=== PATIENT | female | born 1930 | race Caucasian/White ===

== ENCOUNTER 2016-04-14 09:00 | Outpatient (RCR) | payer MEDICARE | END 2016-05-11 | disposition home or self-care (01) | LOC: PTY 09:00 | DX: R26.9 Unspecified abnormalities of gait and mobility (principal); I69.854 Hemiplegia and hemiparesis following other cerebrovascular disease affecting left non-dominant side | CPT/HCPCS: 97110; 97112; 97140; 97162; G8978; G8979 ==

== ENCOUNTER 2016-04-14 18:22 | Emergency (ER) | payer MEDICARE ==
[~2016-04-14] VITALS: Ht 172.7 cm; Wt 59.0 kg
[2016-04-14 19:00] VITALS: BP 167/68
[2016-04-14] MEDS ORDERED: Oxymetazoline 0.05% Na Spray 30ml NASAL ONE (19:15)
[2016-04-14 20:44] VITALS: BP 167/68
--- NOTE | 2016-04-15 14:35 | Emergency Room Report ---
History of Present Illness General Chief Complaint: Nosebleed Source: Patient Present Illness HPI 85-year-old female presents ED for evaluation of nosebleed. Patient states she has had a nosebleed on and off for the last few days. Persistent longer than usual today so she came to the ER for evaluation. States the nosebleed stopped prior to arrival. Denies any injuries. Denies taking any blood thinners. Patient states she feels fine. Denies any difficulty breathing or swallowing. Denies any headaches. No aggravating relieving factors. 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 no active bleeding Neck: normal inspection Respiratory: chest non-tender, lungs clear, normal breath sounds, speaking full sentences Cardiovascular #1: regular rate, rhythm, no edema Gastrointestinal: normal inspection Rectal: deferred Genitourinary: no CVA tenderness Musculoskeletal: normal inspection Neurologic: alert, oriented x3, responsive, motor strength/tone normal, sensory intact, speech normal Psychiatric: normal inspection Skin: normal inspection Lymphatic: normal inspection Medical Decision Making Diagnostic Impression: Primary Impression: Epistaxis ER Course 85-year-old female presents to ED with epistaxis from right nostril. No trauma Differential-anterior epistaxis, posterior epistaxis, coagulopathy Patient placed on stretcher. After initial history, physical exam reveals elderly female in no acute distress. On exam there is no evidence of active bleeding. Dry blood in the right nares. Airways are patent We sprayed Afrin in the right nostril and observe patient for one hour No repeat episodes of bleeding. I discussed case with PMD Dr. Duval and he agrees patient be safely discharged to home at this time with ENT followup. Family at bedside agree Diagnoses-epistaxis Stable and discharged to home. Followup with ENT. Return to ED if symptoms recur or worsen Last Vital Signs Date Time Temp Pulse Resp B/P Pulse Ox O2 Delivery O2 Flow Rate FiO2 04/14/16 20:44 98.1 53 16 167/68 100 Room Air Status: improved Disposition: HOME, SELF-CARE Condition: Stable Referrals: RISHI VERDUGO Vishal MD NOT CHOSEN IPA/,REFERRING (PCP) HUMBERTO GONZALES M.D. Patient Instructions: Nosebleed, [id number] SHA RICHARDSON M.D. Apr 15, 2016 14:35
== END 2016-04-14 20:45 | disposition home or self-care (01) ==
LOC: EMR 19:03
DX: R04.0 Epistaxis (principal); Z88.0 Allergy status to penicillin; I10 Essential (primary) hypertension; G81.94 Hemiplegia, unspecified affecting left nondominant side
CPT/HCPCS: 99283

== ENCOUNTER 2016-05-12 13:45 | Outpatient (RCR) | payer MEDICARE | END 2016-06-11 | disposition home or self-care (01) | LOC: PTY 13:45 | DX: R26.9 Unspecified abnormalities of gait and mobility (principal); I63.40 Cerebral infarction due to embolism of unspecified cerebral artery; Z91.81 History of falling; Z96.651 Presence of right artificial knee joint ==

== ENCOUNTER 2016-08-23 15:20 | Outpatient (RCR) | payer MEDICARE | END 2016-09-10 | disposition home or self-care (01) | LOC: PTY 15:20 | DX: R26.81 Unsteadiness on feet (principal) | CPT/HCPCS: 97110; 97116; 97162; G8978; G8979 ==

== ENCOUNTER 2016-09-20 16:00 | Outpatient (RCR) | payer MEDICARE | END 2016-10-11 | disposition home or self-care (01) | LOC: PTY 16:00 | DX: R26.9 Unspecified abnormalities of gait and mobility (principal) ==

== ENCOUNTER 2017-01-03 16:00 | Outpatient (RCR) | payer MEDICARE | END 2017-01-11 | disposition home or self-care (01) | LOC: PTY 16:00 | DX: R26.9 Unspecified abnormalities of gait and mobility (principal) ==

== ENCOUNTER 2017-01-31 15:15 | Outpatient (RCR) | payer MEDICARE | END 2017-02-10 | disposition home or self-care (01) | LOC: PTY 15:15 | DX: R26.9 Unspecified abnormalities of gait and mobility (principal); R53.1 Weakness; I69.898 Other sequelae of other cerebrovascular disease | CPT/HCPCS: 97110; 97116; G8978; G8979 ==

== ENCOUNTER 2017-03-03 14:00 | Outpatient (RCR) | payer MEDICARE ==
[2017-03-09] MEDS ORDERED: TYLENOL EXTRA500 MG ORAL (15:14)
== END 2017-03-13 | disposition home or self-care (01) ==
LOC: PTY 14:00
DX: R26.9 Unspecified abnormalities of gait and mobility (principal); I69.398 Other sequelae of cerebral infarction

== ENCOUNTER 2017-03-09 12:45 | Emergency (ER) | payer MEDICARE ==
[~2017-03-09] VITALS: Ht 160 cm; Wt 61.2 kg
--- NOTE | 2017-03-09 13:46 | Diagnostic Imaging Report ---
Indication: Pain 3 views of the left knee were obtained. Findings: Acute intra-articular fracture, nondisplaced involving the lateral tibial plateau is demonstrated. The fracture is seen just lateral to and involving the tibial spine and is visible on several projections. There is no depression of the lateral plateau. There is generalized narrowing of the joint space. There is intra-articular fat fluid level demonstrated on cross table lateral imaging. Bones are osteopenic. Calcification of the distal femoral artery demonstrated. IMPRESSION: Acute nondisplaced intra-articular fracture of the lateral tibial spine. Associated lipohemarthrosis. Osteoporosis Osteoarthrosis
--- NOTE | 2017-03-09 14:57 | Diagnostic Imaging Report ---
Indication: Headache Technique: Contiguous 5 mm thick transaxial imaging of the head obtained in a Siemens Sensation [address] scanner. Soft tissue and bone windows generated. Automatic Exposure Control was utilized. Total Dose length Product (DLP): 1404.[address] Dose Index Volume (CTDIvol): 70.38 mGy Comparison: none Findings: There is encephalomalacia involving the high right posterior frontal and parietal region. This is probably due to old infarct. Generalized atrophy of the brain is present. There is no mass effect or edema definitely seen. There is no evidence of acute intracranial hemorrhage identified. The bones are unremarkable. 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 Mild generalized atrophy of the right The CT scanner at [facility] is accredited by the [employer] and the scans are performed using dose optimization techniques as appropriate to a performed exam including Automatic Exposure control.
[2017-03-09] MEDS ORDERED: TYLENOL EXTRA500 MG ORAL (15:14)
[2017-03-09 18:05] VITALS: BP 161/67
--- NOTE | 2017-03-09 21:13 | Emergency Room Report ---
History of Present Illness General Chief Complaint: Lower Extremity Injury Source: Patient, EMS (FRANK AWAD P.ARiley) Present Illness HPI The patient is an 86-year-old female brought in by EMS for left knee pain. She lives in a board and care facility. She does not remember falling. She has a history of dementia and stroke with left-sided weakness. She ambulates with walker usually. She is complaining of pain described as an 8/10 dull ache to the left knee. Does not radiate. She denies any other pain. 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 Hx Seizures: Yes (FRANK AWAD P.A.) Review of Systems All Other Systems: negative except mentioned in HPI (FRANK AWAD P.A.) Physical Exam Vital Signs Date Time Temp Pulse Resp B/P (MAP) Pulse Ox O2 Delivery O2 Flow Rate FiO2 03/09/17 12:41 72 16 160/90 99 Room Air Sp02 EP Interpretation: reviewed, normal General Appearance: no apparent distress, alert, GCS 15, non-toxic Head: normocephalic, atraumatic Eyes: bilateral eye normal inspection, bilateral eye PERRL ENT: hearing grossly normal, normal pharynx, no angioedema, normal voice Neck: full range of motion, no bony tend, supple/symm/no masses Musculoskeletal: back normal, no calf tenderness, decreased range of motion, tender - L anterior knee Neurologic: alert, oriented x3, responsive, motor strength/tone normal, sensory intact, speech normal Psychiatric: judgement/insight normal, memory normal, mood/affect normal, no suicidal/homicidal ideation Skin: normal color, no rash, warm/dry, well hydrated (FRANK AWAD P.ARiley) Procedures Splinting Splinting : Consent: Verbal Location: L knee Pre-Made Type: knee immobilizer Pre-Proc Neuro Vasc Exam: normal Post-Proc Neuro Vasc Exam: normal Patient Tolerated: Well Complications: None (FRANK AWAD) Medical Decision Making PA Attestation Dr. Terry is my supervising physician. Patient management was discussed with my supervising physician (FRANK AWAD) Medicare Attestation Geri Bennett MD hereby attest that the medical record entry accurately reflects signatures/notations that I made in my capacity as MD when I treated/ diagnosed the above listed Medicare beneficiary. I attest that this information is true, accurate and complete to the best of my knowledge. I understand that any falsification, omission, or concealment of material fact may subject me to administrative, civil, or criminal liability. This patient warrants hospital admission for extreme of age and has a condition that cannot be treated as outpatient. (Geri Terry M.D.) Diagnostic Impression: Primary Impression: Tibia fracture ER Course The patient is an 86-year-old female brought in by EMS for left knee pain. Ddx considered include but not limited to sprain/strain, fracture, contusion PE: afebrile. NAD Left knee: Limited active range of motion. There is tenderness to palpation and edema to the anterior aspect. No ecchymosis Xray: Acute nondisplaced intra-articular fracture of the lateral tibial spine. Associated lipohemarthrosis. Left knee immobilizer is placed and the patient will be transferred back to assisted living facility. The patient's family member who arrived as well. ER precautions given. She will FU with ortho and PMD (FRANK AWAD) ER Course I have reviewed the PA's interpretation of Xray results and agree with findings. (Geri Terry M.D.) Other X-Ray Diagnostic Results Other X-Ray Diagnostic Results : X-Ray ordered: L knee # of Views/Limited Vs Complete: 3 View Indication: Pain EP Interpretation: Yes PA Xray: Interpretation reviewed, by supervising MD, and agrees with findings. Interpretation: no dislocation, no soft tissue swelling, other - fracture of tibia Impression: Other Electronically Signed by: Frank Awad PA-C (FRANK AWAD) CT/MRI/US Diagnostic Results CT/MRI/US Diagnostic Results : Imaging Test Ordered: CT head Impression No acute findings (FRANK AWAD) Last Vital Signs Date Time Temp Pulse Resp B/P (MAP) Pulse Ox O2 Delivery O2 Flow Rate FiO2 03/09/17 18:05 70 16 161/67 100 Room Air Status: improved (FRANK AWAD) Disposition: HOME, SELF-CARE Condition: Improved Scripts Acetaminophen* (TYLENOL EXTRA STRENGTH*) 500 Mg Tablet 500 MG ORAL Q8H Y for Prn Headache/Temp > 101, #30 TAB 0 Refills Prov: FRANK AWAD 03/09/17 Referrals: NON PHYSICIAN (PCP) NOT CHOSEN IPA/MD,REFERRING Patient Instructions: Knee Fracture, Adult Additional Instructions: I discussed my findings with the patient. All questions and concerns have been answered. Treatment and medication compliance have been addressed. Return to ED if pain remains or worsens, numbness or tingling occurs, new rash is noticed , fever is noticed, or if needed for any reason. Patient verbalized understanding of discharge instructions. Please followup with your primary doctor for further evaluation. FRANK AWAD Mar 09, 2017 21:13 Geri Terry M.D. Mar 10, 2017 21:15
== END 2017-03-09 18:20 | disposition home or self-care (01) ==
LOC: EDBD 12:45 → EMR 14:09
DX: S82.145A Nondisplaced bicondylar fracture of left tibia, initial encounter for closed fracture (principal); W19.XXXA Unspecified fall, initial encounter; Y92.199 Unspecified place in other specified residential institution as the place of occurrence of the external cause; I10 Essential (primary) hypertension; F03.90 Unspecified dementia, unspecified severity, without behavioral disturbance, psychotic disturbance, mood disturbance, and anxiety; I69.354 Hemiplegia and hemiparesis following cerebral infarction affecting left non-dominant side; M81.0 Age-related osteoporosis without current pathological fracture; M17.12 Unilateral primary osteoarthritis, left knee; G31.9 Degenerative disease of nervous system, unspecified
CPT/HCPCS: 70450; 99284

== ENCOUNTER 2017-04-25 14:50 | Outpatient (RCR) | payer MEDICARE ==
[~2017-04-25 14:50] MED LIST: TYLENOL EXTRA500 MG ORAL
== END 2017-05-11 | disposition home or self-care (01) ==
LOC: PTY 14:50
DX: S82.125D Nondisplaced fracture of lateral condyle of left tibia, subsequent encounter for closed fracture with routine healing (principal); R26.9 Unspecified abnormalities of gait and mobility; Z86.73 Personal history of transient ischemic attack (TIA), and cerebral infarction without residual deficits
CPT/HCPCS: 97110; 97112; 97162; 97530; G8978; G8979

== ENCOUNTER 2017-05-23 09:13 | Outpatient (RCR) | payer MEDICARE | END 2017-06-11 | disposition home or self-care (01) | LOC: PTY 09:13 | DX: S82.142D Displaced bicondylar fracture of left tibia, subsequent encounter for closed fracture with routine healing (principal); Z86.73 Personal history of transient ischemic attack (TIA), and cerebral infarction without residual deficits ==

== ENCOUNTER 2017-06-13 08:05 | Outpatient (RCR) | payer MEDICARE | END 2017-07-11 | disposition home or self-care (01) | LOC: PTY 08:05 | DX: S82.125D Nondisplaced fracture of lateral condyle of left tibia, subsequent encounter for closed fracture with routine healing (principal); Z86.73 Personal history of transient ischemic attack (TIA), and cerebral infarction without residual deficits; R26.9 Unspecified abnormalities of gait and mobility ==

== ENCOUNTER 2017-07-19 15:15 | Outpatient (RCR) | payer MEDICARE ==
[2017-08-04] MEDS ORDERED: UNOBMED (13:05)
[2017-08-04] MEDS ORDERED: NUEDEXTA 20-101 EAC1 PO (17:04)
[2017-08-04] MEDS ORDERED: PHENYTOIN SODI100 MG ORAL ×2 (17:04)
[2017-08-04] MEDS ORDERED: LEXAPRO10 MG ORAL (17:04)
[2017-08-04] MEDS ORDERED: XANAX0.25 MG ORAL (17:04)
[2017-08-04] MEDS ORDERED: ASPIR 8181 MG ORAL (17:04)
[2017-08-04] MEDS ORDERED: LISINOPRIL5 MG ORAL (17:04)
[2017-08-09] MEDS ORDERED: COLACE100 MG ORAL (21:39)
[2017-08-09] MEDS ORDERED: ROZEREM8 MG ORAL (21:39)
[2017-08-09] MEDS ORDERED: BACTRIM-DS1 EA ORAL (21:39)
[2017-08-09] MEDS ORDERED: XALATAN2.5 ML BOTH EYES (21:39)
== END 2017-08-11 | disposition home or self-care (01) ==
LOC: PTY 15:15
DX: S82.125D Nondisplaced fracture of lateral condyle of left tibia, subsequent encounter for closed fracture with routine healing (principal); Z86.73 Personal history of transient ischemic attack (TIA), and cerebral infarction without residual deficits
CPT/HCPCS: 97110; 97112; 97530; G8979; G8980

== ENCOUNTER 2017-08-04 10:31 | Inpatient (IN) | payer MEDICARE ==
[~2017-08-04] VITALS: Ht 170.2 cm; Wt 61.9 kg
[2017-08-04 10:41] VITALS: BP 159/74
--- NOTE | 2017-08-04 11:06 | Emergency Room Report ---
History of Present Illness General Chief Complaint: General Complaint Source: Patient, Medical Record Present Illness HPI Patient presents with paramedics The patient's is here provides much of the information a she herself has significant dementia They're concerned that the patient's UTI is becoming more systemic Patient has had questionable low-grade fevers is noncompliant with her oral medication No reports of any vomiting or diarrhea No reports of any rash Patient is on Bactrim for the UTI However appears mildly weaker than usual Allergies: Coded Allergies: PENICILLINS (Verified Allergy, Unknown, 06/05/15) Patient History Past Medical History: see triage record Pertinent Family History: none Reviewed Nursing Documentation: PMH: Agreed; PSxH: Agreed Nursing Documentation-PMH Past Medical History: No History, Except For Hx Hypertension: Yes Hx Neurological Problems: Yes - DEMETIA Hx Cerebrovascular Accident: Yes - left sided weakness Hx Seizures: Yes Review of Systems All Other Systems: negative except mentioned in HPI Physical Exam Vital Signs Date Time Temp Pulse Resp B/P (MAP) Pulse Ox O2 Delivery O2 Flow Rate FiO2 08/04/17 10:31 97.9 67 18 183/72 97 Room Air 97.9 Sp02 EP Interpretation: reviewed, normal General Appearance: no apparent distress Head: normocephalic, atraumatic Eyes: bilateral eye PERRL, bilateral eye EOMI ENT: hearing grossly normal, TMs + canals normal, uvula midline, dry mucus membranes Neck: full range of motion, supple, no meningismus, no bony tend Respiratory: lungs clear, normal breath sounds, no rhonchi, no respiratory distress, no retraction, no accessory muscle use Cardiovascular #1: normal peripheral pulses, regular rate, rhythm, no edema, no gallop, no JVD, no murmur Gastrointestinal: normal bowel sounds, non tender, soft, no mass, no organomegaly, non-distended, no guarding, no hernia, no pulsatile mass, no rebound Genitourinary: no CVA tenderness Musculoskeletal: normal inspection Neurologic: responsive, rail specialist III-XII nml as tested, motor strength/tone normal, sensory intact, other - Patient has underlying dementia, is able to have appropriate conversation however has decreased recollection of events Psychiatric: mood/affect normal Skin: normal color, no rash, warm/dry, palpation normal Lymphatic: normal inspection, no adenopathy Medical Decision Making Diagnostic Impression: Primary Impression: UTI (urinary tract infection) Additional Impressions: Sepsis Rhabdomyolysis ER Course Patient is complex with multiple differentials considered requiring extensive blood work Patient's urine sample does show many bacteria Blood work revealing increased CK with rhabdomyolysis patient's Lipase levels also significantly elevated This is being repeated Ultrasounds obtained for further inpatient workup and evaluation Patient receiving prostration antibiotics IV hydration and requiring further inpatient care, Labs Test 08/04/17 10:50 08/04/17 10:53 08/04/17 11:00 08/04/17 12:45 Lipase > 2000 U/L (73-393) > 2000 U/L (73-393) White Blood Count 8.7 K/UL (4.8-10.8) Red Blood Count 4.60 M/UL (4.20-5.40) Hemoglobin 14.9 G/DL (12.0-16.0) Hematocrit 43.1 % (37.0-47.0) Mean Corpuscular Volume 94 FL (80-99) Mean Corpuscular Hemoglobin 32.3 PG (27.0-31.0) Mean Corpuscular Hemoglobin Concent 34.4 G/DL (32.0-36.0) Red Cell Distribution Width 11.8 % (11.6-14.8) Platelet Count 153 K/UL (150-450) Mean Platelet Volume 9.0 FL (6.5-10.1) Neutrophils (%) (Auto) % (45.0-75.0) Lymphocytes (%) (Auto) % (20.0-45.0) Monocytes (%) (Auto) % (1.0-10.0) Eosinophils (%) (Auto) % (0.0-3.0) Basophils (%) (Auto) % (0.0-2.0) Differential Total Cells Counted 100 Neutrophils % (Manual) 85 % (45-75) Lymphocytes % (Manual) 10 % (20-45) Monocytes % (Manual) 4 % (1-10) Eosinophils % (Manual) 1 % (0-3) Basophils % (Manual) 0 % (0-2) Band Neutrophils 0 % (0-8) Platelet Estimate Adequate Platelet Morphology Normal Red Blood Cell Morphology Normal Urine Color Yellow Urine Appearance Slightly cloudy Urine pH 6 (4.5-8.0) Urine Specific [place] 1.020 (1.005-1.035) Urine Protein 2+ (NEGATIVE) Urine Glucose (UA) Negative (NEGATIVE) Urine Ketones Negative (NEGATIVE) Urine Occult Blood 5+ (NEGATIVE) Urine Nitrite Negative (NEGATIVE) Urine Bilirubin Negative (NEGATIVE) Urine Urobilinogen Normal MG/DL (0.0-1.0) Urine Leukocyte Esterase 3+ (NEGATIVE) Urine RBC Tntc /HPF (0 - 2) Urine WBC Tntc /HPF (0 - 2) Urine Squamous Epithelial Cells Moderate /LPF (NONE/OCC) Urine Bacteria Moderate /HPF (NONE) Sodium Level 140 MMOL/L (136-145) Potassium Level 3.3 MMOL/L (3.5-5.1) Chloride Level 103 MMOL/L (98-107) Carbon Dioxide Level 27 MMOL/L (21-32) Anion Gap 10 mmol/L (5-15) Blood Urea Nitrogen 18 mg/dL (7-18) Creatinine 1.1 MG/DL (0.55-1.30) Estimat Glomerular Filtration Rate mL/min (>60) Glucose Level 170 MG/DL (74-106) Lactic Acid Level 2.10 mmol/L (0.66-2.22) Calcium Level 9.2 MG/DL (8.5-10.1) Total Bilirubin 0.7 MG/DL (0.2-1.0) Aspartate Amino Transf (AST/SGOT) 57 U/L (15-37) Alanine Aminotransferase (ALT/SGPT) 29 U/L (12-78) Alkaline Phosphatase 108 U/L (46-116) Total Creatine Kinase 1901 U/L (26-308) Creatine Kinase MB 38.1 NG/ML (0.0-3.6) Creatine Kinase MB Relative Index 2.0 Total Protein 8.1 G/DL (6.4-8.2) Albumin 4.1 G/DL (3.4-5.0) Globulin 4.0 g/dL Albumin/Globulin Ratio 1.0 (1.0-2.7) Rhythm Strip Diag. Results EP Interpretation: yes Rate: 77 Rhythm: NSR, no PVC's, no ectopy Chest X-Ray Diagnostic Results Chest X-Ray Diagnostic Results : Chest X-Ray Ordered: Yes # of Views/Limited/Complete: 1 View Indication: Chest Pain EP Interpretation: Yes Interpretation: no consolidation, no effusion, no pneumothorax Impression: No acute disease Electronically Signed by: Chele De La Fuente DO Last Vital Signs Date Time Temp Pulse Resp B/P (MAP) Pulse Ox O2 Delivery O2 Flow Rate FiO2 08/04/17 10:31 97.9 67 18 183/72 97 Room Air 97.9 Status: improved Disposition: ADMITTED INPATIENT Condition: Serious Chele De La Fuente DO August 04, 2017 11:05
[2017-08-04 11:14] LABS: HEMATOCRIT 43.1 % (37.0-47.0); HEMOGLOBIN 14.9 G/DL (12.0-16.0); MEAN CORPUSCULAR VOLUME 94 FL (80-99); PLATELET COUNT 153 K/UL (150-450); RED CELL DISTRIBUTION WIDTH 11.8 % (11.6-14.8); WHITE BLOOD COUNT 8.7 K/UL (4.8-10.8)
[2017-08-04 11:14] LABS: APPEARANCE,URINE SLIGHTLY CLOUDY; BILIRUBIN, URINE NEGATIVE (NEGATIVE); GLUCOSE, URINE (UA) NEGATIVE (NEGATIVE); KETONES,URINE NEGATIVE (NEGATIVE); LEUKOCYTE ESTERASE ,URINE 3+ (NEGATIVE); NITRITE,URINE NEGATIVE (NEGATIVE); PH,URINE 6 (4.5-8.0); PROTEIN,URINE 2+ (NEGATIVE); UROBILINOGEN,URINE NORMAL MG/DL (0.0-1.0)
[2017-08-04 11:20] LABS: COLOR,URINE YELLOW
[2017-08-04 11:34] LABS: ANION GAP 10 mmol/L (5-15); BLOOD UREA NITROGEN 18 mg/dL (7-18); CALCIUM 9.2 MG/DL (8.5-10.1); CARBON DIOXIDE 27 MMOL/L (21-32); CHLORIDE 103 MMOL/L (98-107); CREATININE 1.1 MG/DL (0.55-1.30); POTASSIUM 3.3 MMOL/L (3.5-5.1); SODIUM 140 MMOL/L (136-145)
--- NOTE | 2017-08-04 11:49 | Diagnostic Imaging Report ---
Indication: Chest pain Comparison: None A single view chest radiograph was obtained. Findings: No definite infiltrate or pulmonary vascular congestion identified. The heart is normal in size. The aorta is mildly enlarged consistent with atherosclerotic vascular disease. The bones are osteopenic. Impression: No acute disease
[2017-08-04 11:52] LABS: ALANINE AMINOTRANSFERASE 29 U/L (12-78); ALBUMIN 4.1 G/DL (3.4-5.0); ALKALINE PHOSPHATASE 108 U/L (46-116); ASPARTATE AMINO TRANSFERASE 57 U/L (15-37); BILIRUBIN,TOTAL 0.7 MG/DL (0.2-1.0); CKMB 38.1 NG/ML (0.0-3.6); CREATINE KINASE 1901 U/L (26-308)
[2017-08-04 12:47] VITALS: BP 155/63
[2017-08-04] MEDS ORDERED: UNOBMED (13:05)
[2017-08-04 14:40] VITALS: BP 69/63
[2017-08-04 16:00] VITALS: BP 146/96
[2017-08-04] MEDS ORDERED: NUEDEXTA 20-101 EAC1 PO (17:04)
[2017-08-04] MEDS ORDERED: PHENYTOIN SODI100 MG ORAL ×2 (17:04)
[2017-08-04] MEDS ORDERED: LEXAPRO10 MG ORAL (17:04)
[2017-08-04] MEDS ORDERED: LISINOPRIL5 MG ORAL (17:04)
[2017-08-04] MEDS ORDERED: ASPIR 8181 MG ORAL (17:04)
[2017-08-04] MEDS ORDERED: XANAX0.25 MG ORAL (17:04)
[2017-08-04] MEDS: Nuedexta Capsule 20/10mg ORAL ONE ×2 (18:14→18:30)
[2017-08-04] MEDS ORDERED: ALPRAZolam 0.25mg tab ORAL PRN ×2 (18:15)
--- NOTE | 2017-08-04 19:27 | Geriatric Progress Note ---
Subjective Interval Events 87 y/o with increasing agitation, poor oral intake, confusion, possible urinary tract infection. Lab studies at [facility] revealed mild pyuria, with E. coli. In ED, noted to have evidence of rhabdomyolysis and elevated lipase of unclear etiology. Patient has been getting CBD oil per dtr. Received one dose of Bactrim DS along with usual meds. Admitted for further eval and tx. 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 Vascular dementia. Labile affect. Knee replacement . Bunionectomy . Cataract extraction 2012. L hip/wrist fractures 2013. Fall with L tibial plateau fx end of last year, followed by Dr. Alanis. Gait disorder. Glaucoma. Meds: ASA 81 daily. Vit D3 5000u daily. Neudexta 1 cap daily. Diclofenac transdermal 4gms qid prn L hip pain. Lexapro 15mg qhs. Lisinopril 2.5mg daily. Dilantin ER 100mg qam, 200mg qhs. Latanoprost 0.005% 1 gtt OU qhs. Currently paranoid, denies being ill. Appears disheveled but not in physical distress. H/N: anicteric, normal ROM Chest: clear. CV: RR. Abd: nl b.s., soft, scaphoid, without focal tenderness, masses. Ext: superficial excoriations, contusions as per nursing documentation. No edema. Aphasic speech, L hemiplegia. No evidence of acute deficits. Currently patient refusing medications, discussed with son-in-law. He will attempt to have her take medications. If not will need to given IM benzo or neuroleptic. Attempting to get abd u/s. GI eval requested from Dr. Flores. If patient allows tx with IV Gent, convert to Bactrim when possible. Given initial elevated lactate, ? if need IV dosing, however patient does not appear to be septic at present. Dictated #[id number]. Geriatric Geriatric Last 24 Hour Vital Signs Date Time Temp Pulse Resp B/P (MAP) Pulse Ox O2 Delivery O2 Flow Rate FiO2 08/04/17 16:00 97.2 68 18 146/96 96 Room Air 97.2 08/04/17 14:40 98.5 89 23 157/69 98 Room Air 98.2 08/04/17 14:40 98.5 89 23 69/63 98 Room Air 98.5 08/04/17 12:47 98.2 64 16 155/63 100 Room Air 98.2 08/04/17 10:41 97.9 67 16 159/74 97 Room Air 97.9 08/04/17 10:31 97.9 67 18 183/72 97 Room Air 97.9 Laboratory Tests Test 08/04/17 10:50 08/04/17 10:53 08/04/17 11:00 08/04/17 12:45 Lipase > 2000 U/L (73-393) H > 2000 U/L (73-393) H White Blood Count 8.7 K/UL (4.8-10.8) Red Blood Count 4.60 M/UL (4.20-5.40) Hemoglobin 14.9 G/DL (12.0-16.0) Hematocrit 43.1 % (37.0-47.0) Mean Corpuscular Volume 94 FL (80-99) Mean Corpuscular Hemoglobin 32.3 PG (27.0-31.0) H Mean Corpuscular Hemoglobin Concent 34.4 G/DL (32.0-36.0) Red Cell Distribution Width 11.8 % (11.6-14.8) Platelet Count 153 K/UL (150-450) Mean Platelet Volume 9.0 FL (6.5-10.1) Neutrophils (%) (Auto) % (45.0-75.0) Lymphocytes (%) (Auto) % (20.0-45.0) Monocytes (%) (Auto) % (1.0-10.0) Eosinophils (%) (Auto) % (0.0-3.0) Basophils (%) (Auto) % (0.0-2.0) Differential Total Cells Counted 100 Neutrophils % (Manual) 85 % (45-75) H Lymphocytes % (Manual) 10 % (20-45) L Monocytes % (Manual) 4 % (1-10) Eosinophils % (Manual) 1 % (0-3) Basophils % (Manual) 0 % (0-2) Band Neutrophils 0 % (0-8) Platelet Estimate Adequate Platelet Morphology Normal Red Blood Cell Morphology Normal Urine Color Yellow Urine Appearance Slightly cloudy Urine pH 6 (4.5-8.0) Urine Specific [place] 1.020 (1.005-1.035) Urine Protein 2+ (NEGATIVE) H Urine Glucose (UA) Negative (NEGATIVE) Urine Ketones Negative (NEGATIVE) Urine Occult Blood 5+ (NEGATIVE) H Urine Nitrite Negative (NEGATIVE) Urine Bilirubin Negative (NEGATIVE) Urine Urobilinogen Normal MG/DL (0.0-1.0) Urine Leukocyte Esterase 3+ (NEGATIVE) H Urine RBC Tntc /HPF (0 - 2) H Urine WBC Tntc /HPF (0 - 2) H Urine Squamous Epithelial Cells Moderate /LPF (NONE/OCC) H Urine Bacteria Moderate /HPF (NONE) H Sodium Level 140 MMOL/L (136-145) Potassium Level 3.3 MMOL/L (3.5-5.1) L Chloride Level 103 MMOL/L (98-107) Carbon Dioxide Level 27 MMOL/L (21-32) Anion Gap 10 mmol/L (5-15) Blood Urea Nitrogen 18 mg/dL (7-18) Creatinine 1.1 MG/DL (0.55-1.30) Estimat Glomerular Filtration Rate mL/min (>60) Glucose Level 170 MG/DL (74-106) H Lactic Acid Level 2.10 mmol/L (0.66-2.22) 1.40 mmol/L (0.66-2.22) Calcium Level 9.2 MG/DL (8.5-10.1) Total Bilirubin 0.7 MG/DL (0.2-1.0) Aspartate Amino Transf (AST/SGOT) 57 U/L (15-37) H Alanine Aminotransferase (ALT/SGPT) 29 U/L (12-78) Alkaline Phosphatase 108 U/L (46-116) Total Creatine Kinase 1901 U/L (26-308) H Creatine Kinase MB 38.1 NG/ML (0.0-3.6) H Creatine Kinase MB Relative Index 2.0 Total Protein 8.1 G/DL (6.4-8.2) Albumin 4.1 G/DL (3.4-5.0) Globulin 4.0 g/dL Albumin/Globulin Ratio 1.0 (1.0-2.7) Test 08/04/17 13:40 Lipase > 2000 U/L (73-393) H Current Medications Medications (Trade) Dose Ordered Sig/Martha Route PRN Reason Start Time Stop Time Status Last Admin Dose Admin Acetaminophen (Tylenol) 500 mg Q8H PRN ORAL Prn Headache/Temp > 101 08/04/17 18:15 09/03/17 18:14 Alprazolam (Xanax) 0.25 mg BIDPRN PRN ORAL For Anxiety 08/04/17 18:15 08/11/17 18:14 Aspirin (Ecotrin) 81 mg DAILY ORAL 08/05/17 09:00 09/04/17 08:59 Dextromethorphan/ Quinidine (Nuedexta Capsule) 1 cap DAILY ORAL 08/05/17 09:00 09/04/17 08:59 Dextromethorphan/ Quinidine (Nuedexta Capsule) 1 cap ONCE ONCE ORAL 08/04/17 18:30 08/04/17 18:31 Escitalopram Oxalate (Lexapro) 10 mg DAILY ORAL 08/05/17 09:00 09/04/17 08:59 Latanoprost (Xalatan) 1 drop BEDTIME BOTH EYES 08/04/17 21:00 09/03/17 20:59 UNV Lisinopril (Zestril) 5 mg DAILY ORAL 08/05/17 09:00 09/04/17 08:59 Phenytoin (Dilantin) 100 mg DAILY ORAL 08/05/17 09:00 09/04/17 08:59 Phenytoin (Dilantin) 200 mg BEDTIME ORAL 08/04/17 21:00 09/03/17 20:59 Sodium Chloride 1,000 ml @ 100 mls/hr Q10H IV 08/04/17 16:15 09/03/17 16:14 08/04/17 17:33 Height (Feet): 5 Height (Inches): 7.00 Weight (Pounds): 149 ESTEFANY LOZANO August 04, 2017 19:27
[2017-08-04] MEDS ORDERED: Nuedexta Capsule 20/10mg ORAL PRN (19:45)
[2017-08-04] MEDS: ALPRAZolam 0.25mg tab ORAL PRN (20:23)
[2017-08-04 20:27] LABS: CREATINE KINASE 2051 U/L (26-308)
[2017-08-04] MEDS ORDERED: Gentamicin 100mg/50ml Premix 50 ML IVPB SCH (21:00)
[2017-08-04] MEDS: Ramelteon 8mg tab (Approved for Delirium use only) ORAL SCH (21:39)
[2017-08-04] MEDS: Latanoprost 0.005% Opth 2.5ml Soln BOTH EYES SCH (21:39)
[2017-08-04] MEDS: Phenytoin 100mg cap ORAL SCH (21:39)
--- NOTE | 2017-08-04 23:30 | History and Physical Report ---
DATE OF ADMISSION: 08/04/2017 IDENTIFYING DATA: The patient is an 87-year-old woman who has been noted to have increased agitation and confusion at her [facility] care facility. HISTORY OF PRESENT ILLNESS: The patient has a history of chronic cognitive changes associated with prior hemorrhagic cerebrovascular accident and concomitant depressive syndrome with paranoia. She has had an unsteady gait associated with the hemiparesis, but until the end of last year was able to ambulate with a walker, after physical therapy had strengthened her balance and gait. At the end of last year, the patient experienced a fall and was found to have a tibial plateau nondisplaced vertical fracture involving the joint. This was treated conservatively by Dr. Aaron Alanis and the patient improved considerably. However, she continues to have less strength in her left lower extremity because of the fracture superimposed on the hemiparesis and has had more difficulty with attempts at ambulation. The patient was seen in the office on 07/28/2017 at which point, the facility had obtained a urinalysis with a urine dipstick and felt there was potentially urinary tract infection. However, the patient did not have symptoms and after discussion with the daughter, it was elected to hold off on therapy, depending on whether the patient developed symptoms. Over the weekend, the patient apparently began to develop increasing symptoms with some agitation, some confusion and some poor appetite. The patient was seen by home health care. Laboratories were drawn and the patient's urine was obtained. Those results were available today with a WBC of 3.6, hematocrit of 42, and platelet count of 163. Fairly normal differential. Glucose 71, BUN 14, creatinine 0.7, sodium 145, potassium 4.1, chloride 105, and calcium 8.9. Albumin 4.0. Globulin 2.1. Alkaline phosphatase of 88, AST 17, and ALT 9. Total bilirubin 0.6. The urine showed 6 to 10 wbc's, 0 to 5 rbc's, rare bacteria and negative yeast. E. coli grew out greater than 100,000 with sensitivities to cephalosporins and penicillins resistant to fluoroquinolones and sensitive to nitrofurantoin and Bactrim. The patient was empirically begun on Bactrim DS, but the symptoms continued. The patient developed increasing agitation, poor oral intake, confusion and she was sent to the emergency room. In the emergency room, the patient was noted to be somewhat guarded and paranoid and denied complaints, but appeared to be confused compared to her baseline. Laboratory data in the emergency room revealed a white count of 8.7, hematocrit of 43.1, platelet count of 153, mild left shift with 85% neutrophils. The sodium was 140, potassium 3.3, chloride 103, bicarbonate 27, BUN 18, creatinine 1.1 and glucose 170. Calcium 9.2. Total bilirubin 0.5. AST 57, ALT 29, and alkaline phosphatase 108. Total CK 1901 and CK-MB 38.1. Total protein 8.1 and albumin 4.1, and lipase greater than 2000. Initial lactate was 2.10 and subsequent lactate was 1.40. Urinalysis that shows 3+ leukocytes, too numerous to count rbc's, too numerous to count wbc's, 5+ occult blood, and 2+ protein. Chest x-ray showed no evidence acute infiltrate or fluid redistribution. The patient was therefore admitted for further evaluation and treatment. It should be noted that the patient has been getting CBD oil episodically from the patient's daughter to help manage her anxiety and agitation. PAST MEDICAL HISTORY: 1. 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 2. Simple partial seizures. 3. Irritable bowel syndrome, diarrhea predominant. 4. Depression and paranoia. 5. Vascular dementia. 6. Labile affect. 7. Status post knee replacement in . 8. Status post bunionectomy in . 9. Cataract extraction in 2012. 10. Left hip and wrist fractures in 2013. 11. Fall with left tibial intra-articular fracture in 02/2017. 12. Gait disorder. 13. Glaucoma. MEDICATIONS: Usual medications include aspirin 81 mg daily, vitamin D3 5000 units daily, Nuedexta 1 capsule daily, diclofenac transdermal 4 g q.i.d. p.r.n. hip pain, Lexapro 15 mg at bedtime, lisinopril 2.5 mg daily, Dilantin ER 100 mg every morning and 200 mg at bedtime, and latanoprost 0.005% one drop both eyes at bedtime. SOCIAL HISTORY: The patient was born in [place], [place] and moved to [place] at age 11 and lived in [place] from age 13. Her first was in [employer]. 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 She retired in [facility]. She had been living in an independent living facility in [place] until she moved back to be cared for by her daughter in [place]. FAMILY HISTORY: Notable only for cancer in the patient's mother. The patient is not currently smoking or taking illicit medications, but does receive the CBD oil as noted. PHYSICAL EXAMINATION: GENERAL: The patient is a well-developed, somewhat anxious, and disheveled woman, guarded and paranoid at times, not cooperative with the examination or with medications. VITAL SIGNS: The patient's blood pressure is 146/96, heart rate is 68, respiratory rate is 18, temperature 97.2 degrees axillary, and pulse oximetry 96% on room air. HEAD AND NECK: Reveals anicteric sclerae. The neck appears to have normal range of motion without masses. CHEST: Grossly clear to auscultation. CARDIOVASCULAR: Reveals regular rhythm. BREASTS: Without dominant masses. ABDOMEN: Reveals normal bowel sounds. It is soft and scaphoid without focal tenderness or masses appreciated. EXTREMITIES: Reveal multiple superficial excoriations and contusions as documented in the nursing photographs. There is no distal edema. There is no evidence of acute synovitis. NEUROLOGIC: The patient has aphasic speech consistent with her baseline and a left hemiplegia. She has no clear evidence of acute deficits, but is uncooperative with full neurologic examination. IMPRESSION AND PLAN: The patient presents with a change in function including agitation, diminished intake and increased confusion compared to her baseline. She has evidence for possible urinary tract infection, although the significance and severity is unclear given the various different urinalysis results. In any event, the patient would likely benefit from a course of antibiotic therapy, which will be directed initially by the sensitivities obtained from the prior urine obtained at the [facility]. Because of her penicillin allergy, the patient may be covered with intravenous gentamicin initially and converted to oral Bactrim when she allows and if her medical condition is sufficiently stable. The patient did have initially borderline elevated lactate and so she may require IV dosing for few days, but she does not appear to be cardiovascularly unstable at the present time. Her elevated CPK and elevated lipase are of uncertain etiology. Possibility of a CBD oil reaction is a consideration given the overall presentation. It is not clear whether the other medications the patient is taking might be contributing in any way. She did get one dose of Bactrim, but that seems insufficient to account for the changes as noted. There is no history of trauma that would be the etiology for the elevated CPK and there are reports of CPK elevations due to CBD oil in the literature. The lipase is of more uncertain etiology. An ultrasound has been ordered and Gastrointestinal consultation is requested from Dr. lFores. The patient is not particularly cooperative at the present time, it is unclear whether we will be able to get these results initially. The situation was discussed with the patient's son-in-law and he has returned to the hospital to encourage patient to take her oral medications and that intramuscular or parental medications will not be required at the present time. However, if the patient's symptoms did not respond well, she may ultimately require additional psychiatric medications to control her at least for the acute episode. The patient did receive a bolus of normal saline in the emergency room and probably will not require routine intravenous fluids at the present time, but again depending on oral intake, this may be an issue. Additional interventions will be considered depending on the patient's response to therapy. Darrion Duval M.D. DR: CHUNG JOB#: [id number] CC: PAO
[2017-08-05] MEDS ORDERED: Isovue-300 100ml vial INJ PRN ×2 (07:45→15:30)
[2017-08-05 08:00] VITALS: BP 158/63
[2017-08-05] MEDS ORDERED: Nuedexta Capsule 20/10mg ORAL SCH (09:00)
[2017-08-05 09:26] LABS: ALANINE AMINOTRANSFERASE 30 U/L (12-78); ALBUMIN 2.9 G/DL (3.4-5.0); ALBUMIN/GLOBULIN RATIO 0.8 (1.0-2.7); ALKALINE PHOSPHATASE 80 U/L (46-116); AMYLASE 239 U/L (25-115); ANION GAP 11 mmol/L (5-15); ASPARTATE AMINO TRANSFERASE 91 U/L (15-37); BILIRUBIN,TOTAL 0.9 MG/DL (0.2-1.0); BLOOD UREA NITROGEN 14 mg/dL (7-18); CALCIUM 8.4 MG/DL (8.5-10.1); CARBON DIOXIDE 21 MMOL/L (21-32); CHLORIDE 109 MMOL/L (98-107); CREATININE 0.9 MG/DL (0.55-1.30); POTASSIUM 4.4 MMOL/L (3.5-5.1); SODIUM 141 MMOL/L (136-145)
[2017-08-05] MEDS: Aspirin EC 81mg tab ORAL SCH (10:32)
[2017-08-05] MEDS: Nuedexta Capsule 20/10mg ORAL SCH (10:33)
[2017-08-05] MEDS: Lisinopril 10mg tab ORAL SCH (10:33)
[2017-08-05] MEDS: Phenytoin 100mg cap ORAL SCH ×2 (10:33→21:30)
--- NOTE | 2017-08-05 11:10 | Diagnostic Imaging Report ---
Indication: Pancreatitis, abnormal liver function tests, pain Technique: Curtis-scale and duplex images of the upper abdomen were obtained Comparison: none Findings: Gallbladder is unremarkable, without stones, wall thickening, nor pericholecystic fluid. Sonographic Preston's sign is negative. Common bile duct measures 12 mm in diameter. There is questionable intrahepatic biliary ductal dilatation. No definite intraductal calculi. Liver demonstrates normal echogenicity, no focal abnormality. Portal vein and hepatic veins are patent. Pancreas is unremarkable. Spleen is unremarkable. Left kidney measures 8.8 cm in length. Right kidney measures 9.3 cm length. Both kidneys demonstrate normal echogenicity. There is no hydronephrosis. Right kidney demonstrates an upper pole nodular echogenic focus which measures 8 mm in diameter. The left kidney demonstrates a cyst in the renal sinus which measures 13 mm in diameter . Non-aneurysmal abdominal aorta . Impression: Negative for gallstones Dilated 12 mm common bile duct, questionable intrahepatic biliary ductal dilatation. Well possibly on the basis of senescent change, downstream obstruction a possibility. Consider further evaluation with MRCP if clinically indicated Right renal echogenic focus. Could represent a nonobstructive calculus or could represent an angiomyolipoma Incidental finding left renal cyst
[2017-08-05] MEDS: ALPRAZolam 0.25mg tab ORAL PRN ×2 (12:25→21:30)
--- NOTE | 2017-08-05 13:54 | Geriatric Progress Note ---
Assessment/Plan Problems: (1) Elevated lipase (2) Elevated amylase (3) Toxic metabolic encephalopathy (4) Vascular dementia (5) Gait instability (6) Rhabdomyolysis (7) UTI (urinary tract infection) Assessment/Plan Transient hyperlipasemia - ?passed stone, gravel, ? drug effect, ? other etiology. Rhabdomyolysis - ? unrecongnized trauma, ? hypoperfusion episode, ? CBD oil effect. DJD - Tylenol, Voltaren gel if family can bring in. Give additional dose of Gentamicin for UTI pending C&S. GI w/u per Dr. Flores. DNR/DNI. Discussed with: hospital staff Subjective Interval Events Patient currently sleepy. Received Xanax earlier. Reportedly was not sleeping well and was anxious and mildly agitated over night. Currently sleeping deeply, not arousing with touch. Labs with persistent elevation CPK, resolution of hyperlipasemia, mild residual amylase elevation. U/s with somewhat dilated CBD. MRI pending per Dr. Flores. No other specific issues per staff, except some R knee pain c/o. Staff received confirmation from dtr/son-in-law of DNR/DNI status. Constitutional: Denies: chills, sweats, fever Cardiovascular: Denies: chest pain Gastrointestinal/Abdominal: Denies: abdominal pain Geriatric Geriatric Last 24 Hour Vital Signs Date Time Temp Pulse Resp B/P (MAP) Pulse Ox O2 Delivery O2 Flow Rate FiO2 08/05/17 10:33 158/63 08/05/17 08:00 98.0 64 16 158/63 97 Room Air 98.0 08/05/17 04:00 Room Air 08/04/17 16:00 97.2 68 18 146/96 96 Room Air 97.2 08/04/17 14:40 98.5 89 23 157/69 98 Room Air 98.2 08/04/17 14:40 98.5 89 23 69/63 98 Room Air 98.5 Intake and Output 08/04/17 08/05/17 19:00 07:00 Intake Total 1000 ml 1100 ml Balance 1000 ml 1100 ml Intake IV Total 1000 ml 1100 ml # Voids 2 2 Laboratory Tests Test 08/04/17 13:40 08/05/17 05:30 Total Creatine Kinase 2051 U/L (26-308) H Lipase > 2000 U/L (73-393) H 305 U/L (73-393) Sodium Level 141 MMOL/L (136-145) Potassium Level 4.4 MMOL/L (3.5-5.1) Chloride Level 109 MMOL/L (98-107) H Carbon Dioxide Level 21 MMOL/L (21-32) Anion Gap 11 mmol/L (5-15) Blood Urea Nitrogen 14 mg/dL (7-18) Creatinine 0.9 MG/DL (0.55-1.30) Estimat Glomerular Filtration Rate mL/min (>60) Glucose Level 62 MG/DL (74-106) #L Calcium Level 8.4 MG/DL (8.5-10.1) L Magnesium Level 1.9 MG/DL (1.8-2.4) Total Bilirubin 0.9 MG/DL (0.2-1.0) Aspartate Amino Transf (AST/SGOT) 91 U/L (15-37) H Alanine Aminotransferase (ALT/SGPT) 30 U/L (12-78) Alkaline Phosphatase 80 U/L (46-116) Total Protein 6.5 G/DL (6.4-8.2) Albumin 2.9 G/DL (3.4-5.0) L Globulin 3.6 g/dL Albumin/Globulin Ratio 0.8 (1.0-2.7) L Amylase Level 239 U/L (25-115) H Current Medications Medications (Trade) Dose Ordered Sig/Martha Route PRN Reason Start Time Stop Time Status Last Admin Dose Admin Acetaminophen (Tylenol) 500 mg Q8H PRN ORAL Prn Headache/Temp > 101 08/04/17 18:15 09/03/17 18:14 Alprazolam (Xanax) 0.25 mg Q6H PRN ORAL For Anxiety 08/04/17 20:00 08/11/17 19:59 08/05/17 12:25 Aspirin (Ecotrin) 81 mg DAILY ORAL 08/05/17 09:00 09/04/17 08:59 08/05/17 10:32 Dextromethorphan/ Quinidine (Nuedexta Capsule) 1 cap DAILY ORAL 08/05/17 09:00 09/04/17 08:59 08/05/17 10:33 Dextromethorphan/ Quinidine (Nuedexta Capsule) 1 cap Q12H PRN ORAL increased lability 08/04/17 19:45 09/03/17 19:44 Escitalopram Oxalate (Lexapro) 10 mg DAILY ORAL 08/05/17 09:00 09/04/17 08:59 08/05/17 10:32 Gentamicin Sulfate/Sodium Chloride 50 ml @ 100 mls/hr ONCE IVPB 08/04/17 21:00 08/11/17 20:59 08/04/17 21:39 Latanoprost (Xalatan) 1 drop BEDTIME BOTH EYES 08/04/17 21:00 09/03/17 20:59 08/04/17 21:39 Lisinopril (Zestril) 5 mg DAILY ORAL 08/05/17 09:00 09/04/17 08:59 08/05/17 10:33 Phenytoin (Dilantin) 100 mg DAILY ORAL 08/05/17 09:00 09/04/17 08:59 08/05/17 10:33 Phenytoin (Dilantin) 200 mg BEDTIME ORAL 08/04/17 21:00 09/03/17 20:59 08/04/17 21:39 Ramelteon (Rozerem) 8 mg QHS ORAL 08/04/17 21:00 09/03/17 20:59 08/04/17 21:39 Sodium Chloride 1,000 ml @ 100 mls/hr Q10H IV 08/04/17 16:15 09/03/17 16:14 08/05/17 12:25 Height (Feet): 5 Height (Inches): 7.00 Weight (Pounds): 149 General Appearance: other - sleeping Head: normocephalic, atraumatic Eyes: bilateral anicteric Neck: full range of motion, no mass Respiratory: lungs clear Cardiovascular: regular rate, rhythm Gastrointestinal: normal bowel sounds, non tender, soft, no mass, no organomegaly Edema: no edema noted Generalized ESTEFANY LOZANO August 05, 2017 13:54
[2017-08-05] MEDS ORDERED: LORazepam Inj 2mg/ml 1ml IV PRN (14:15)
--- NOTE | 2017-08-05 16:39 | Diagnostic Imaging Report ---
Clinical Indication: Abdominal pain Technique: No oral contrast utilized, reason not stated. IV administration nonionic contrast. Venous phase spiral acquisition obtained through the abdomen and pelvis. Multiplanar reconstructions were generated. Total dose length product 726.62 mGycm. CTDIvol(s) 15.03 mGy. Dose reduction achieved using automated exposure control Comparison: none Findings: Exam is limited; patient is very contracted. This distorts the anatomy and overlapping body parts result in image noise which could obscure pathology. Also, lack of enteric contrast administration limits assessment of the GI tract. There is probably colonic diverticulosis. No definite evidence of diverticulitis. The appendix is not visualized, but there are no findings to suggest acute appendicitis. No small bowel distention. There is hepatocolonic interposition. There is a small amount of free intraperitoneal fluid over the dome of the liver. No free intraperitoneal air. The liver is unremarkable. The gallbladder is distended but otherwise unremarkable The common bile duct is mildly ectatic, measuring 9 mm in diameter. No definite downstream obstructive lesion demonstrated. The pancreatic duct is also ectatic. The pancreas itself is normal. The liver demonstrates a subcentimeter low-attenuation lesion in segment 4A which is too small to characterize. The spleen is unremarkable. 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 This measures under a centimeter diameter. The adrenals are unremarkable. The left kidney demonstrates a subcentimeter low-attenuation lesion which is too small to characterize. No pelvic mass or adenopathy. There is left hip surgical hardware. This throws off streak artifact which may also obscure pathology. The bones demonstrate degenerative spondylosis compressive changes are seen in the left lung base. The heart is borderline enlarged. The included lung bases are otherwise clear. Impression: . Limited exam, as described Trace ascites fluid No other definite acute abnormality demonstrated Colonic diverticulosis. No evidence of diverticulitis Ectatic common bile duct. No definite downstream obstructive lesion demonstrated. Most likely on the basis of senescent change, but occult downstream obstruction not excludable. Related with liver function tests Ectatic pancreatic duct, significance uncertain Subcentimeter calcified splenic artery aneurysm Subcentimeter low-attenuation lesion in segment 4A of the liver and similar lesion in the left kidney. Too small to characterize, most likely benign simple cysts. No further follow-up necessary Other findings as noted, including compressive atelectatic changes of left lung, left hip surgical hardware The CT scanner at [facility] is accredited by the [employer] and the scans are performed using protocols designed to limit radiation exposure to as low as reasonably achievable to attain images of sufficient resolution adequate for diagnostic evaluation.
[2017-08-05] MEDS ORDERED: Tubing IV Secondary IV ONE (17:44)
[2017-08-05 19:59] VITALS: BP 156/61
[2017-08-05] MEDS ORDERED: NS IVPB SCH (21:00)
[2017-08-05] MEDS ORDERED: GENTAMICIN IVPB SCH (21:00)
[2017-08-05] MEDS: Ramelteon 8mg tab (Approved for Delirium use only) ORAL SCH (21:30)
[2017-08-05] MEDS: Latanoprost 0.005% Opth 2.5ml Soln BOTH EYES SCH (21:30)
--- NOTE | 2017-08-05 22:35 | Cardiology Report ---
APPROVED REPORT EKG Measurement Heart [id number] Sinus rhythm with premature atrial complexes Left axis deviation Anterior infarct, age undetermined Abnormal ECG
--- NOTE | 2017-08-05 23:06 | General Progress Note ---
Assessment/Plan Assessment/Plan Assessment - Resolved hyperlipasemia - transient dilation of biliary tree - mildly elevated AST - presentation c/w passed stone Recommendations - po diet trial - follow labs and exam - conservative management, given age Subjective Allergies: Coded Allergies: PENICILLINS (Verified Allergy, Unknown, 06/05/15) Subjective Feels OK no new symptoms US --> mild biliary dilation CT --> negative Objective Last 24 Hour Vital Signs Date Time Temp Pulse Resp B/P (MAP) Pulse Ox O2 Delivery O2 Flow Rate FiO2 08/05/17 19:59 98.0 53 20 156/61 96 Room Air 98.0 08/05/17 10:33 158/63 08/05/17 08:00 98.0 64 16 158/63 97 Room Air 98.0 08/05/17 04:00 Room Air Intake and Output 08/04/17 08/05/17 19:00 07:00 Intake Total 1000 ml 1100 ml Balance 1000 ml 1100 ml Intake IV Total 1000 ml 1100 ml # Voids 2 2 Laboratory Tests 08/05/17 05:30: Sodium Level 141, Potassium Level 4.4, Chloride Level 109H, Carbon Dioxide Level 21, Anion Gap 11, Blood Urea Nitrogen 14, Creatinine 0.9, Estimat Glomerular Filtration Rate , Glucose Level 62#L, Calcium Level 8.4L, Magnesium Level 1.9, Total Bilirubin 0.9, Aspartate Amino Transf (AST/SGOT) 91H, Alanine Aminotransferase (ALT/SGPT) 30, Alkaline Phosphatase 80, Total Protein 6.5, Albumin 2.9L, Globulin 3.6, Albumin/Globulin Ratio 0.8L, Amylase Level 239H, Lipase 305 Height (Feet): 5 Height (Inches): 7.00 Weight (Pounds): 149 Manpreet Flores MD August 05, 2017 23:06
[2017-08-06 03:53] VITALS: BP 135/50
[2017-08-06 08:00] VITALS: BP 144/63
[2017-08-06 08:10] LABS: BASOPHILS % (AUTO) 0.8 % (0.0-2.0); EOSINOPHILS % (AUTO) 1.1 % (0.0-3.0); HEMATOCRIT 38.3 % (37.0-47.0); HEMOGLOBIN 13.1 G/DL (12.0-16.0); LYMPHOCYTES % (AUTO) 15.4 % (20.0-45.0); MEAN CORPUSCULAR VOLUME 94 FL (80-99); MONOCYTES % (AUTO) 5.6 % (1.0-10.0); NEUTROPHILS % (AUTO) 77.1 % (45.0-75.0); PLATELET COUNT 116 K/UL (150-450); RED BLOOD COUNT 4.07 M/UL (4.20-5.40); WHITE BLOOD COUNT 6.5 K/UL (4.8-10.8)
[2017-08-06] MEDS: Nuedexta Capsule 20/10mg ORAL SCH (08:38)
[2017-08-06] MEDS: Phenytoin 100mg cap ORAL SCH ×2 (08:38→20:51)
[2017-08-06] MEDS: Lisinopril 10mg tab ORAL SCH (08:38)
[2017-08-06] MEDS: Aspirin EC 81mg tab ORAL SCH (08:38)
[2017-08-06 08:48] LABS: ALANINE AMINOTRANSFERASE 33 U/L (12-78); ALBUMIN 3.1 G/DL (3.4-5.0); ALBUMIN/GLOBULIN RATIO 0.9 (1.0-2.7); ALKALINE PHOSPHATASE 82 U/L (46-116); AMYLASE 104 U/L (25-115); ANION GAP 13 mmol/L (5-15); ASPARTATE AMINO TRANSFERASE 79 U/L (15-37); BILIRUBIN,TOTAL 0.6 MG/DL (0.2-1.0); BLOOD UREA NITROGEN 18 mg/dL (7-18); CALCIUM 8.4 MG/DL (8.5-10.1); CARBON DIOXIDE 22 MMOL/L (21-32); CHLORIDE 108 MMOL/L (98-107); CREATINE KINASE 1321 U/L (26-308); POTASSIUM 3.6 MMOL/L (3.5-5.1); SODIUM 143 MMOL/L (136-145)
--- NOTE | 2017-08-06 10:41 | General Progress Note ---
Assessment/Plan Assessment/Plan Toxic Metabolic Encephalopathy E coli UTI sensitive to gentamicin Rhabdomyolysis improving, renal fx normal Vascular dementia DJD Gait Instability Transient hyperlipiasemia, CT abd noted, essentially unremarkable VRE rectum Plan; Continue IV gentamicin, ID consult increase oral intake on IV fluids, Continue IV fluids Repeat CPK, CBC, BMP, lipase, Amylase Subjective Allergies: Coded Allergies: PENICILLINS (Verified Allergy, Unknown, 06/05/15) Subjective awake, disoriented, cant tell year, month, thinks she is in [place], pleasant, smiling, eating breakfast. Objective Last 24 Hour Vital Signs Date Time Temp Pulse Resp B/P (MAP) Pulse Ox O2 Delivery O2 Flow Rate FiO2 08/06/17 08:38 119/64 08/06/17 03:53 97.7 67 20 135/50 97 97.7 08/05/17 19:59 98.0 53 20 156/61 96 Room Air 98.0 Intake and Output 08/05/17 08/06/17 19:00 07:00 Intake Total 100 ml 1163.75 ml Balance 100 ml 1163.75 ml IV Total 100 ml 1163.75 ml # Voids 3 3 Laboratory Tests 08/06/17 06:00: White Blood Count 6.5, Red Blood Count 4.07L, Hemoglobin 13.1, Hematocrit 38.3, Mean Corpuscular Volume 94, Mean Corpuscular Hemoglobin 32.1H, Mean Corpuscular Hemoglobin Concent 34.1, Red Cell Distribution Width 12.0, Platelet Count 116L, Mean Platelet Volume 9.3, Neutrophils (%) (Auto) 77.1H, Lymphocytes (%) (Auto) 15.4L, Monocytes (%) (Auto) 5.6, Eosinophils (%) (Auto) 1.1, Basophils (%) (Auto ) 0.8, Sodium Level 143, Potassium Level 3.6, Chloride Level 108H, Carbon Dioxide Level 22, Anion Gap 13, Blood Urea Nitrogen 18, Creatinine 1.0, Estimat Glomerular Filtration Rate , Glucose Level 47L, Calcium Level 8.4L, Magnesium Level 1.9, Total Bilirubin 0.6, Aspartate Amino Transf (AST/SGOT) 79H, Alanine Aminotransferase (ALT/SGPT) 33, Alkaline Phosphatase 82, Total Creatine Kinase 1321H, Total Protein 6.5, Albumin 3.1L, Globulin 3.4, Albumin/Globulin Ratio 0.9L, Amylase Level 104, Lipase 148 Height (Feet): 5 Height (Inches): 7.00 Weight (Pounds): 149 General Appearance: no apparent distress, confused Cardiovascular: regular rhythm Respiratory/Chest: lungs clear Abdomen: non tender, soft, no mass Edema: non-pitting, other - no edema DOMENIC CARTWRIGHT M.D. August 06, 2017 10:41
[2017-08-06 12:00] VITALS: BP 132/71
--- NOTE | 2017-08-06 14:14 | Infectious Diseases Prog Note ---
Assessment/Plan Assessment/Plan Full consult dictated: A) 1) e.coli uti, complicated uti, encephalopathy, ? sepsis 2) pmh noted 3) allergies - pcn P) 1) agree with gentamicin - day # 2 2) watch cr closely 3) thank you Subjective Allergies: Coded Allergies: PENICILLINS (Verified Allergy, Unknown, 06/05/15) Objective Vital Signs Last 24 Hour Vital Signs Date Time Temp Pulse Resp B/P (MAP) Pulse Ox O2 Delivery O2 Flow Rate FiO2 08/06/17 12:00 97.4 56 18 132/71 96 Room Air 97.4 08/06/17 08:38 119/64 08/06/17 08:00 97.1 55 20 144/63 96 Room Air 97.1 08/06/17 03:53 97.7 67 20 135/50 97 97.7 08/05/17 19:59 98.0 53 20 156/61 96 Room Air 98.0 Height (Feet): 5 Height (Inches): 7.00 Weight (Pounds): 149 Microbiology Date/Time Source Procedure Growth Status 08/04/17 11:00 Blood Blood Culture - Preliminary NO GROWTH AFTER 24 HOURS Resulted 08/04/17 10:50 Blood Blood Culture - Preliminary NO GROWTH AFTER 24 HOURS Resulted 08/04/17 11:03 Nasal Nares MRSA Culture - Final NO METHICILLIN RESISTANT STAPH AUREUS... Complete 08/04/17 11:00 Urine,Clean Catch Urine Culture - Final Escherichia Coli Complete 08/04/17 11:03 Rectum VRE Culture - Final Enterococcus Faecalis - Vre Complete Laboratory Tests Test 08/06/17 06:00 White Blood Count 6.5 K/UL (4.8-10.8) Red Blood Count 4.07 M/UL (4.20-5.40) L Hemoglobin 13.1 G/DL (12.0-16.0) Hematocrit 38.3 % (37.0-47.0) Mean Corpuscular Volume 94 FL (80-99) Mean Corpuscular Hemoglobin 32.1 PG (27.0-31.0) H Mean Corpuscular Hemoglobin Concent 34.1 G/DL (32.0-36.0) Red Cell Distribution Width 12.0 % (11.6-14.8) Platelet Count 116 K/UL (150-450) L Mean Platelet Volume 9.3 FL (6.5-10.1) Neutrophils (%) (Auto) 77.1 % (45.0-75.0) H Lymphocytes (%) (Auto) 15.4 % (20.0-45.0) L Monocytes (%) (Auto) 5.6 % (1.0-10.0) Eosinophils (%) (Auto) 1.1 % (0.0-3.0) Basophils (%) (Auto) 0.8 % (0.0-2.0) Sodium Level 143 MMOL/L (136-145) Potassium Level 3.6 MMOL/L (3.5-5.1) Chloride Level 108 MMOL/L (98-107) H Carbon Dioxide Level 22 MMOL/L (21-32) Anion Gap 13 mmol/L (5-15) Blood Urea Nitrogen 18 mg/dL (7-18) Creatinine 1.0 MG/DL (0.55-1.30) Estimat Glomerular Filtration Rate mL/min (>60) Glucose Level 47 MG/DL (74-106) L Calcium Level 8.4 MG/DL (8.5-10.1) L Magnesium Level 1.9 MG/DL (1.8-2.4) Total Bilirubin 0.6 MG/DL (0.2-1.0) Aspartate Amino Transf (AST/SGOT) 79 U/L (15-37) H Alanine Aminotransferase (ALT/SGPT) 33 U/L (12-78) Alkaline Phosphatase 82 U/L (46-116) Total Creatine Kinase 1321 U/L (26-308) H Total Protein 6.5 G/DL (6.4-8.2) Albumin 3.1 G/DL (3.4-5.0) L Globulin 3.4 g/dL Albumin/Globulin Ratio 0.9 (1.0-2.7) L Amylase Level 104 U/L (25-115) Lipase 148 U/L (73-393) Current Medications Medications (Trade) Dose Ordered Sig/Martha Route PRN Reason Start Time Stop Time Status Last Admin Dose Admin Acetaminophen (Tylenol) 500 mg Q8H PRN ORAL Prn Headache/Temp > 101 08/04/17 18:15 09/03/17 18:14 Alprazolam (Xanax) 0.25 mg Q6H PRN ORAL For Anxiety 08/04/17 20:00 08/11/17 19:59 08/05/17 21:30 Aspirin (Ecotrin) 81 mg DAILY ORAL 08/05/17 09:00 09/04/17 08:59 08/06/17 08:38 Dextromethorphan/ Quinidine (Nuedexta Capsule) 1 cap DAILY ORAL 08/05/17 09:00 09/04/17 08:59 08/06/17 08:38 Dextromethorphan/ Quinidine (Nuedexta Capsule) 1 cap Q12H PRN ORAL increased lability 08/04/17 19:45 09/03/17 19:44 Escitalopram Oxalate (Lexapro) 10 mg DAILY ORAL 08/05/17 09:00 09/04/17 08:59 08/06/17 08:38 Gentamicin Sulfate 150 mg/ Sodium Chloride 113.75 ml @ 113.75 mls/hr Q24H IVPB 08/05/17 21:00 08/12/17 20:59 08/05/17 21:30 Iopamidol (Isovue-300 100ml) 100 ml ONCE PRN INJ RADIOLOGY USE ONLY 08/05/17 15:30 08/07/17 23:59 Latanoprost (Xalatan) 1 drop BEDTIME BOTH EYES 08/04/17 21:00 09/03/17 20:59 08/05/17 21:30 Lisinopril (Zestril) 5 mg DAILY ORAL 08/05/17 09:00 09/04/17 08:59 08/06/17 08:38 Phenytoin (Dilantin) 100 mg DAILY ORAL 08/05/17 09:00 09/04/17 08:59 08/06/17 08:38 Phenytoin (Dilantin) 200 mg BEDTIME ORAL 08/04/17 21:00 09/03/17 20:59 08/05/17 21:30 Ramelteon (Rozerem) 8 mg QHS ORAL 08/04/17 21:00 09/03/17 20:59 08/05/17 21:30 Sodium Chloride 1,000 ml @ 100 mls/hr Q10H IV 08/04/17 16:15 09/03/17 16:14 08/06/17 08:39 Eun Ribera MD August 06, 2017 14:14
[2017-08-06] MEDS ORDERED: Gentamicin Rx monitoring MISC PRN (14:15)
[2017-08-06 16:00] VITALS: BP 131/69
--- NOTE | 2017-08-06 16:40 | General Progress Note ---
Assessment/Plan Assessment/Plan Assessment - Resolved hyperlipasemia - transient dilation of biliary tree - mildly elevated AST - presentation c/w passed stone Recommendations - po diet - follow labs and exam - conservative management, given age Subjective Allergies: Coded Allergies: PENICILLINS (Verified Allergy, Unknown, 06/05/15) Subjective Feels OK no new symptoms comfortable Objective Last 24 Hour Vital Signs Date Time Temp Pulse Resp B/P (MAP) Pulse Ox O2 Delivery O2 Flow Rate FiO2 08/06/17 12:00 97.4 56 18 132/71 96 Room Air 97.4 08/06/17 08:38 119/64 08/06/17 08:00 97.1 55 20 144/63 96 Room Air 97.1 08/06/17 03:53 97.7 67 20 135/50 97 97.7 08/05/17 19:59 98.0 53 20 156/61 96 Room Air 98.0 Intake and Output 08/05/17 08/06/17 19:00 07:00 Intake Total 100 ml 1163.75 ml Balance 100 ml 1163.75 ml IV Total 100 ml 1163.75 ml # Voids 3 3 Laboratory Tests 08/06/17 06:00: White Blood Count 6.5, Red Blood Count 4.07L, Hemoglobin 13.1, Hematocrit 38.3, Mean Corpuscular Volume 94, Mean Corpuscular Hemoglobin 32.1H, Mean Corpuscular Hemoglobin Concent 34.1, Red Cell Distribution Width 12.0, Platelet Count 116L, Mean Platelet Volume 9.3, Neutrophils (%) (Auto) 77.1H, Lymphocytes (%) (Auto) 15.4L, Monocytes (%) (Auto) 5.6, Eosinophils (%) (Auto) 1.1, Basophils (%) (Auto ) 0.8, Sodium Level 143, Potassium Level 3.6, Chloride Level 108H, Carbon Dioxide Level 22, Anion Gap 13, Blood Urea Nitrogen 18, Creatinine 1.0, Estimat Glomerular Filtration Rate , Glucose Level 47L, Calcium Level 8.4L, Magnesium Level 1.9, Total Bilirubin 0.6, Aspartate Amino Transf (AST/SGOT) 79H, Alanine Aminotransferase (ALT/SGPT) 33, Alkaline Phosphatase 82, Total Creatine Kinase 1321H, Total Protein 6.5, Albumin 3.1L, Globulin 3.4, Albumin/Globulin Ratio 0.9L, Amylase Level 104, Lipase 148 Height (Feet): 5 Height (Inches): 7.00 Weight (Pounds): 149 Manpreet Flores MD August 06, 2017 16:39
[2017-08-06] MEDS: Ramelteon 8mg tab (Approved for Delirium use only) ORAL SCH (20:51)
[2017-08-06] MEDS: Latanoprost 0.005% Opth 2.5ml Soln BOTH EYES SCH (20:56)
[2017-08-06] MEDS: ALPRAZolam 0.25mg tab ORAL PRN (21:00)
[2017-08-06] MEDS ORDERED: Gentamicin inj 300 MG in NS 110 ML IVPB SCH (21:00)
[2017-08-07] VITALS: BP 138/83
[2017-08-07 08:00] VITALS: BP 142/97
[2017-08-07 08:11] LABS: BASOPHILS % (AUTO) 0.9 % (0.0-2.0); EOSINOPHILS % (AUTO) 0.7 % (0.0-3.0); HEMATOCRIT 39.8 % (37.0-47.0); HEMOGLOBIN 13.2 G/DL (12.0-16.0); LYMPHOCYTES % (AUTO) 19.3 % (20.0-45.0); MEAN CORPUSCULAR VOLUME 93 FL (80-99); MONOCYTES % (AUTO) 6.1 % (1.0-10.0); NEUTROPHILS % (AUTO) 73.1 % (45.0-75.0); PLATELET COUNT 128 K/UL (150-450); RED BLOOD COUNT 4.29 M/UL (4.20-5.40); RED CELL DISTRIBUTION WIDTH 11.8 % (11.6-14.8); WHITE BLOOD COUNT 4.9 K/UL (4.8-10.8)
[2017-08-07] MEDS: Nuedexta Capsule 20/10mg ORAL SCH (08:15)
[2017-08-07] MEDS: Aspirin EC 81mg tab ORAL SCH (08:16)
[2017-08-07] MEDS: Lisinopril 10mg tab ORAL SCH (08:19)
[2017-08-07] MEDS: Phenytoin 100mg cap ORAL SCH ×2 (08:19→20:07)
[2017-08-07 08:36] LABS: AMYLASE 79 U/L (25-115); ANION GAP 9 mmol/L (5-15); BLOOD UREA NITROGEN 11 mg/dL (7-18); CALCIUM 8.2 MG/DL (8.5-10.1); CARBON DIOXIDE 26 MMOL/L (21-32); CHLORIDE 106 MMOL/L (98-107); CREATINE KINASE 734 U/L (26-308); CREATININE 0.9 MG/DL (0.55-1.30); POTASSIUM 3.4 MMOL/L (3.5-5.1); SODIUM 141 MMOL/L (136-145)
--- NOTE | 2017-08-07 09:43 | General Progress Note ---
Assessment/Plan Assessment/Plan Toxic Metabolic Encephalopathy E coli UTI sensitive to gentamicin Hypokalemia Rhabdomyolysis improving, renal fx normal Vascular dementia DJD Gait Instability Transient hyperlipiasemia, CT abd noted, essentially unremarkable VRE rectum Plan; Continue IV gentamicin, ID consult appreciated Obtain swallow evaluation increase oral intake Continue IV fluids Repeat CPK, CBC, BMP, lipase, Amylase Contact isolation Monitor renal functions add colace 100 mg bid and dulcolax prn Subjective Allergies: Coded Allergies: PENICILLINS (Verified Allergy, Unknown, 06/05/15) Subjective confused, talking about going down to get her , pleasant though with no episodes of agitation during exam, PO intake is fair, constipated ( will add stool softener) Objective Last 24 Hour Vital Signs Date Time Temp Pulse Resp B/P (MAP) Pulse Ox O2 Delivery O2 Flow Rate FiO2 08/07/17 08:19 142/97 08/07/17 08:00 98.0 68 21 142/97 96 Room Air 98.0 08/07/17 04:00 97.2 82 20 98 Room Air 97.2 08/07/17 00:00 97.1 49 20 138/83 99 Room Air 97.1 08/06/17 16:00 97.9 61 20 131/69 98 Room Air 97.9 08/06/17 12:00 97.4 56 18 132/71 96 Room Air 97.4 Intake and Output 08/06/17 08/07/17 19:00 07:00 Intake Total 770 ml 1337.5 ml Balance 770 ml 1337.5 ml Intake Oral 670 ml 120 ml IV Total 100 ml 1217.5 ml # Voids 1 # Bowel Movements 4 Laboratory Tests 08/07/17 08:00: White Blood Count 4.9, Red Blood Count 4.29, Hemoglobin 13.2, Hematocrit 39.8, Mean Corpuscular Volume 93, Mean Corpuscular Hemoglobin 30.7, Mean Corpuscular Hemoglobin Concent 33.1, Red Cell Distribution Width 11.8, Platelet Count 128L, Mean Platelet Volume 9.8, Neutrophils (%) (Auto) 73.1, Lymphocytes (%) (Auto) 19.3L, Monocytes (%) (Auto) 6.1, Eosinophils (%) (Auto) 0.7, Basophils (%) (Auto ) 0.9, Sodium Level 141, Potassium Level 3.4L, Chloride Level 106, Carbon Dioxide Level 26, Anion Gap 9, Blood Urea Nitrogen 11, Creatinine 0.9, Estimat Glomerular Filtration Rate , Glucose Level 155#H, Calcium Level 8.2L, Total Creatine Kinase 734H, Amylase Level 79, Lipase 194, Random Gentamicin Level 3.6 Height (Feet): 5 Height (Inches): 7.00 Weight (Pounds): 149 General Appearance: confused Cardiovascular: regular rhythm Respiratory/Chest: lungs clear Abdomen: non tender, soft DOMENIC CARTWRIGHT M.D. August 07, 2017 09:43
[2017-08-07 12:00] VITALS: BP 152/75
[2017-08-07] MEDS: ALPRAZolam 0.25mg tab ORAL PRN (13:14)
--- NOTE | 2017-08-07 13:24 | Infectious Diseases Prog Note ---
Assessment/Plan Assessment/Plan Full consult dictated: A) 1) e.coli uti, complicated uti, encephalopathy, ? sepsis 2) pmh noted 3) allergies - pcn P) 1) agree with gentamicin - day # 3, plan on 10 tx course 2) watch cr closely 3) will f/u Subjective Constitutional: Denies: fever HEENT: Denies: congestion Respiratory: Denies: shortness of breath Cardiovascular: Denies: chest pain Gastrointestinal/Abdominal: Denies: nausea, vomiting, diarrhea Genitourinary: Reports: other - no lara Allergies: Coded Allergies: PENICILLINS (Verified Allergy, Unknown, 06/05/15) Objective Vital Signs Last 24 Hour Vital Signs Date Time Temp Pulse Resp B/P (MAP) Pulse Ox O2 Delivery O2 Flow Rate FiO2 08/07/17 12:00 97.6 66 20 152/75 97 Room Air 97.6 08/07/17 08:19 142/97 08/07/17 08:00 98.0 68 21 142/97 96 Room Air 98.0 08/07/17 04:00 97.2 82 20 98 Room Air 97.2 08/07/17 00:00 97.1 49 20 138/83 99 Room Air 97.1 08/06/17 16:00 97.9 61 20 131/69 98 Room Air 97.9 Height (Feet): 5 Height (Inches): 7.00 Weight (Pounds): 149 HEENT: normocephalic, atraumatic, anicteric, mucous membranes moist Respiratory/Chest: lungs clear, normal breath sounds, no respiratory distress Cardiovascular: normal rate, regular rhythm Abdomen: normal bowel sounds, soft, non tender, no organomegaly, non distended Laboratory Tests Test 08/07/17 08:00 White Blood Count 4.9 K/UL (4.8-10.8) Red Blood Count 4.29 M/UL (4.20-5.40) Hemoglobin 13.2 G/DL (12.0-16.0) Hematocrit 39.8 % (37.0-47.0) Mean Corpuscular Volume 93 FL (80-99) Mean Corpuscular Hemoglobin 30.7 PG (27.0-31.0) Mean Corpuscular Hemoglobin Concent 33.1 G/DL (32.0-36.0) Red Cell Distribution Width 11.8 % (11.6-14.8) Platelet Count 128 K/UL (150-450) L Mean Platelet Volume 9.8 FL (6.5-10.1) Neutrophils (%) (Auto) 73.1 % (45.0-75.0) Lymphocytes (%) (Auto) 19.3 % (20.0-45.0) L Monocytes (%) (Auto) 6.1 % (1.0-10.0) Eosinophils (%) (Auto) 0.7 % (0.0-3.0) Basophils (%) (Auto) 0.9 % (0.0-2.0) Sodium Level 141 MMOL/L (136-145) Potassium Level 3.4 MMOL/L (3.5-5.1) L Chloride Level 106 MMOL/L (98-107) Carbon Dioxide Level 26 MMOL/L (21-32) Anion Gap 9 mmol/L (5-15) Blood Urea Nitrogen 11 mg/dL (7-18) Creatinine 0.9 MG/DL (0.55-1.30) Estimat Glomerular Filtration Rate mL/min (>60) Glucose Level 155 MG/DL (74-106) #H Calcium Level 8.2 MG/DL (8.5-10.1) L Total Creatine Kinase 734 U/L (26-308) H Amylase Level 79 U/L (25-115) Lipase 194 U/L (73-393) Random Gentamicin Level 3.6 ug/mL Current Medications Medications (Trade) Dose Ordered Sig/Martha Route PRN Reason Start Time Stop Time Status Last Admin Dose Admin Acetaminophen (Tylenol) 500 mg Q8H PRN ORAL Prn Headache/Temp > 101 08/04/17 18:15 09/03/17 18:14 Alprazolam (Xanax) 0.25 mg Q6H PRN ORAL For Anxiety 08/04/17 20:00 08/11/17 19:59 08/07/17 13:14 Aspirin (Ecotrin) 81 mg DAILY ORAL 08/05/17 09:00 09/04/17 08:59 08/07/17 08:16 Bisacodyl (Dulcolax) 10 mg DAILYPRN PRN RECTAL Constipation 08/07/17 11:00 09/06/17 10:59 Dextromethorphan/ Quinidine (Nuedexta Capsule) 1 cap DAILY ORAL 08/05/17 09:00 09/04/17 08:59 08/07/17 08:15 Dextromethorphan/ Quinidine (Nuedexta Capsule) 1 cap Q12H PRN ORAL increased lability 08/04/17 19:45 09/03/17 19:44 Docusate Sodium (Colace) 100 mg TWICE A DAY ORAL 08/07/17 18:00 09/06/17 17:59 Escitalopram Oxalate (Lexapro) 10 mg DAILY ORAL 08/05/17 09:00 09/04/17 08:59 08/07/17 08:16 Gentamicin Protocol (Gentamicin pharmacy to dose) 1 ea DAILY PRN MISC Per rx protocol 08/06/17 14:15 09/05/17 14:14 Gentamicin Sulfate 300 mg/ Sodium Chloride 117.5 ml @ 117.5 mls/ hr Q36H IVPB 08/08/17 09:00 08/15/17 23:59 Iopamidol (Isovue-300 100ml) 100 ml ONCE PRN INJ RADIOLOGY USE ONLY 08/05/17 15:30 08/07/17 23:59 Latanoprost (Xalatan) 1 drop BEDTIME BOTH EYES 08/04/17 21:00 09/03/17 20:59 08/06/17 20:56 Lisinopril (Zestril) 5 mg DAILY ORAL 08/05/17 09:00 09/04/17 08:59 08/07/17 08:19 Phenytoin (Dilantin) 100 mg DAILY ORAL 08/05/17 09:00 09/04/17 08:59 08/07/17 08:19 Phenytoin (Dilantin) 200 mg BEDTIME ORAL 08/04/17 21:00 09/03/17 20:59 08/06/17 20:51 Ramelteon (Rozerem) 8 mg QHS ORAL 08/04/17 21:00 09/03/17 20:59 08/06/17 20:51 Sodium Chloride 1,000 ml @ 100 mls/hr Q10H IV 08/04/17 16:15 09/03/17 16:14 08/07/17 04:26 Eun Ribera MD August 07, 2017 13:24
[2017-08-07 16:03] VITALS: BP 129/93
[2017-08-07] MEDS: Docusate 100mg cap ORAL SCH (17:18)
--- NOTE | 2017-08-07 17:48 | General Progress Note ---
Assessment/Plan Assessment/Plan Assessment - Resolved hyperlipasemia - transient dilation of biliary tree - mildly elevated AST - presentation c/w passed stone Recommendations - po diet - follow labs and exam - conservative management, given age Subjective Allergies: Coded Allergies: PENICILLINS (Verified Allergy, Unknown, 06/05/15) Subjective Feels OK no new symptoms no abd pain comfortable Objective Last 24 Hour Vital Signs Date Time Temp Pulse Resp B/P (MAP) Pulse Ox O2 Delivery O2 Flow Rate FiO2 08/07/17 16:03 97.1 69 22 129/93 96 Room Air 97.1 08/07/17 12:00 97.6 66 20 152/75 97 Room Air 97.6 08/07/17 08:19 142/97 08/07/17 08:00 98.0 68 21 142/97 96 Room Air 98.0 08/07/17 04:00 97.2 82 20 98 Room Air 97.2 08/07/17 00:00 97.1 49 20 138/83 99 Room Air 97.1 Intake and Output 08/06/17 08/07/17 19:00 07:00 Intake Total 770 ml 1337.5 ml Balance 770 ml 1337.5 ml Intake Oral 670 ml 120 ml IV Total 100 ml 1217.5 ml # Voids 1 # Bowel Movements 4 Laboratory Tests 08/07/17 08:00: White Blood Count 4.9, Red Blood Count 4.29, Hemoglobin 13.2, Hematocrit 39.8, Mean Corpuscular Volume 93, Mean Corpuscular Hemoglobin 30.7, Mean Corpuscular Hemoglobin Concent 33.1, Red Cell Distribution Width 11.8, Platelet Count 128L, Mean Platelet Volume 9.8, Neutrophils (%) (Auto) 73.1, Lymphocytes (%) (Auto) 19.3L, Monocytes (%) (Auto) 6.1, Eosinophils (%) (Auto) 0.7, Basophils (%) (Auto ) 0.9, Sodium Level 141, Potassium Level 3.4L, Chloride Level 106, Carbon Dioxide Level 26, Anion Gap 9, Blood Urea Nitrogen 11, Creatinine 0.9, Estimat Glomerular Filtration Rate , Glucose Level 155#H, Calcium Level 8.2L, Total Creatine Kinase 734H, Amylase Level 79, Lipase 194, Random Gentamicin Level 3.6 Height (Feet): 5 Height (Inches): 7.00 Weight (Pounds): 149 Manpreet Flores MD August 07, 2017 17:48
[2017-08-07 20:00] VITALS: BP 157/83
[2017-08-07] MEDS: Ramelteon 8mg tab (Approved for Delirium use only) ORAL SCH (20:07)
[2017-08-07] MEDS: Latanoprost 0.005% Opth 2.5ml Soln BOTH EYES SCH (21:23)
[2017-08-08] VITALS: BP 149/99
[2017-08-08] MEDS: ALPRAZolam 0.25mg tab ORAL PRN (01:06)
[2017-08-08 04:00] VITALS: BP 143/89
[2017-08-08 07:32] LABS: BASOPHILS % (AUTO) 0.9 % (0.0-2.0); EOSINOPHILS % (AUTO) 0.3 % (0.0-3.0); HEMATOCRIT 42.2 % (37.0-47.0); HEMOGLOBIN 14.5 G/DL (12.0-16.0); LYMPHOCYTES % (AUTO) 18.7 % (20.0-45.0); MEAN CORPUSCULAR VOLUME 91 FL (80-99); MONOCYTES % (AUTO) 6.2 % (1.0-10.0); NEUTROPHILS % (AUTO) 73.8 % (45.0-75.0); PLATELET COUNT 148 K/UL (150-450); RED BLOOD COUNT 4.61 M/UL (4.20-5.40); RED CELL DISTRIBUTION WIDTH 11.4 % (11.6-14.8); WHITE BLOOD COUNT 7.1 K/UL (4.8-10.8)
[2017-08-08 07:38] LABS: AMYLASE 73 U/L (25-115); ANION GAP 12 mmol/L (5-15); BLOOD UREA NITROGEN 7 mg/dL (7-18); CALCIUM 8.9 MG/DL (8.5-10.1); CARBON DIOXIDE 25 MMOL/L (21-32); CHLORIDE 104 MMOL/L (98-107); CREATININE 0.9 MG/DL (0.55-1.30); POTASSIUM 3.5 MMOL/L (3.5-5.1); SODIUM 141 MMOL/L (136-145)
[2017-08-08 08:00] VITALS: BP 142/83
[2017-08-08 08:19] LABS: ALANINE AMINOTRANSFERASE 42 U/L (12-78); ALBUMIN 3.9 G/DL (3.4-5.0); ALKALINE PHOSPHATASE 107 U/L (46-116); ASPARTATE AMINO TRANSFERASE 78 U/L (15-37); BILIRUBIN,DIRECT 0.2 MG/DL (0.0-0.3); BILIRUBIN,TOTAL 0.8 MG/DL (0.2-1.0)
[2017-08-08] MEDS: Docusate 100mg cap ORAL SCH ×2 (08:47→17:25)
[2017-08-08] MEDS: Aspirin EC 81mg tab ORAL SCH (08:47)
[2017-08-08] MEDS: Lisinopril 10mg tab ORAL SCH (08:48)
[2017-08-08] MEDS: Phenytoin 100mg cap ORAL SCH ×2 (08:48→21:26)
[2017-08-08] MEDS: Nuedexta Capsule 20/10mg ORAL SCH (08:48)
[2017-08-08] MEDS ORDERED: Gentamicin inj 300 MG in NS 110 ML IVPB SCH (09:00)
--- NOTE | 2017-08-08 09:51 | General Progress Note ---
Assessment/Plan Assessment/Plan Assessment - Resolved hyperlipasemia - transient dilation of biliary tree - mildly elevated AST - presentation c/w passed stone Recommendations - po diet - follow labs and exam - conservative management, given age/dementia Subjective Allergies: Coded Allergies: PENICILLINS (Verified Allergy, Unknown, 06/05/15) Subjective Feels OK no new symptoms no abd pain appears more confused today Objective Last 24 Hour Vital Signs Date Time Temp Pulse Resp B/P (MAP) Pulse Ox O2 Delivery O2 Flow Rate FiO2 08/08/17 08:48 142/83 08/08/17 08:00 97.5 77 14 142/83 97 Room Air 97.5 08/08/17 04:00 97.6 66 18 143/89 97 97.6 08/08/17 00:00 98.0 63 18 149/99 97 98.0 08/07/17 20:00 98.3 63 18 157/83 94 98.3 08/07/17 16:03 97.1 69 22 129/93 96 Room Air 97.1 08/07/17 12:00 97.6 66 20 152/75 97 Room Air 97.6 Intake and Output 08/07/17 08/08/17 19:00 07:00 Intake Total 1120 ml 700 ml Balance 1120 ml 700 ml Intake Oral 1020 ml IV Total 100 ml 700 ml # Voids 7 6 Laboratory Tests 08/08/17 06:00: White Blood Count 7.1, Red Blood Count 4.61, Hemoglobin 14.5, Hematocrit 42.2, Mean Corpuscular Volume 91, Mean Corpuscular Hemoglobin 31.5H, Mean Corpuscular Hemoglobin Concent 34.5, Red Cell Distribution Width 11.4L, Platelet Count 148L , Mean Platelet Volume 9.7, Neutrophils (%) (Auto) 73.8, Lymphocytes (%) (Auto) 18.7L, Monocytes (%) (Auto) 6.2, Eosinophils (%) (Auto) 0.3, Basophils (%) (Auto ) 0.9, Sodium Level 141, Potassium Level 3.5, Chloride Level 104, Carbon Dioxide Level 25, Anion Gap 12, Blood Urea Nitrogen 7, Creatinine 0.9, Estimat Glomerular Filtration Rate , Glucose Level 106, Calcium Level 8.9, Total Bilirubin 0.8, Direct Bilirubin 0.2, Aspartate Amino Transf (AST/SGOT) 78H, Alanine Aminotransferase (ALT/SGPT) 42, Alkaline Phosphatase 107, Total Creatine Kinase [Pending], Total Protein 7.5, Albumin 3.9, Amylase Level 73, Lipase 201 Height (Feet): 5 Height (Inches): 7.00 Weight (Pounds): 149 Manpreet Flores MD August 08, 2017 09:51
[2017-08-08 10:08] LABS: CREATINE KINASE 1010 U/L (26-308)
[2017-08-08 12:00] VITALS: BP 135/90
--- NOTE | 2017-08-08 14:50 | Geriatric Progress Note ---
Assessment/Plan Problems: (1) Elevated lipase (2) Elevated amylase (3) Toxic metabolic encephalopathy (4) Vascular dementia (5) Gait instability (6) Rhabdomyolysis (7) UTI (urinary tract infection) Assessment/Plan UTI, per discussion with Dr. Ribera, with switch to oral Bactrim to complete tx. Resolved hyperlipasemia, likely passed stone. Monitor for further sxs. Persistent CK elevation, ? persistent CBD oil effect, ? other medication effect , ? persistent trauma or delayed clearance. Recheck labs including aldolase, LDH, ESR, CRP. Mobilize with P.T., recent baseline with ambulation with FWW 1-2p A. If clinically stable on po meds, able to transfer with A, consider d/c tomorrow [facility] vs rehab course at SNF. Discussed with: patient, hospital staff Subjective Interval Events Events of weekend reviewed. Patient denies discomfort, but unreliable due to cognitive deficits. Staff reports no major b.m., but patient was not eating well prior to admission. Also son-in-law has not brought in Voltaren gel, but sxs are not persistent. OK to use acetaminophen at present. Discussed with Dr. Ribera, OK to switch to oral Bactrim. Labs show resolution of hyperlipasemia. CK still elevated with slight rebound today. Also AST elevated. ? persistent process. Functionally has not been out of bed yet. Subjective Denies all sxs, but responses unreliable. Geriatric Geriatric Last 24 Hour Vital Signs Date Time Temp Pulse Resp B/P (MAP) Pulse Ox O2 Delivery O2 Flow Rate FiO2 08/08/17 12:00 98.2 85 16 135/90 97 Room Air 98.2 08/08/17 08:48 142/83 08/08/17 08:00 97.5 77 14 142/83 97 Room Air 97.5 08/08/17 04:00 97.6 66 18 143/89 97 97.6 08/08/17 00:00 98.0 63 18 149/99 97 98.0 08/07/17 20:00 98.3 63 18 157/83 94 98.3 08/07/17 16:03 97.1 69 22 129/93 96 Room Air 97.1 Intake and Output 08/07/17 08/08/17 19:00 07:00 Intake Total 1120 ml 700 ml Balance 1120 ml 700 ml Intake Oral 1020 ml IV Total 100 ml 700 ml # Voids 7 6 Laboratory Tests Test 08/08/17 06:00 White Blood Count 7.1 K/UL (4.8-10.8) Red Blood Count 4.61 M/UL (4.20-5.40) Hemoglobin 14.5 G/DL (12.0-16.0) Hematocrit 42.2 % (37.0-47.0) Mean Corpuscular Volume 91 FL (80-99) Mean Corpuscular Hemoglobin 31.5 PG (27.0-31.0) H Mean Corpuscular Hemoglobin Concent 34.5 G/DL (32.0-36.0) Red Cell Distribution Width 11.4 % (11.6-14.8) L Platelet Count 148 K/UL (150-450) L Mean Platelet Volume 9.7 FL (6.5-10.1) Neutrophils (%) (Auto) 73.8 % (45.0-75.0) Lymphocytes (%) (Auto) 18.7 % (20.0-45.0) L Monocytes (%) (Auto) 6.2 % (1.0-10.0) Eosinophils (%) (Auto) 0.3 % (0.0-3.0) Basophils (%) (Auto) 0.9 % (0.0-2.0) Sodium Level 141 MMOL/L (136-145) Potassium Level 3.5 MMOL/L (3.5-5.1) Chloride Level 104 MMOL/L (98-107) Carbon Dioxide Level 25 MMOL/L (21-32) Anion Gap 12 mmol/L (5-15) Blood Urea Nitrogen 7 mg/dL (7-18) Creatinine 0.9 MG/DL (0.55-1.30) Estimat Glomerular Filtration Rate mL/min (>60) Glucose Level 106 MG/DL (74-106) Calcium Level 8.9 MG/DL (8.5-10.1) Total Bilirubin 0.8 MG/DL (0.2-1.0) Direct Bilirubin 0.2 MG/DL (0.0-0.3) Aspartate Amino Transf (AST/SGOT) 78 U/L (15-37) H Alanine Aminotransferase (ALT/SGPT) 42 U/L (12-78) Alkaline Phosphatase 107 U/L (46-116) Total Creatine Kinase 1010 U/L (26-308) H Total Protein 7.5 G/DL (6.4-8.2) Albumin 3.9 G/DL (3.4-5.0) Amylase Level 73 U/L (25-115) Lipase 201 U/L (73-393) Current Medications Medications (Trade) Dose Ordered Sig/Martha Route PRN Reason Start Time Stop Time Status Last Admin Dose Admin Acetaminophen (Tylenol) 500 mg Q8H PRN ORAL Prn Headache/Temp > 101 08/04/17 18:15 09/03/17 18:14 Alprazolam (Xanax) 0.25 mg Q6H PRN ORAL For Anxiety 08/04/17 20:00 08/11/17 19:59 08/08/17 01:06 Aspirin (Ecotrin) 81 mg DAILY ORAL 08/05/17 09:00 09/04/17 08:59 08/08/17 08:47 Bisacodyl (Dulcolax) 10 mg DAILYPRN PRN RECTAL Constipation 08/07/17 11:00 09/06/17 10:59 08/08/17 08:48 Dextromethorphan/ Quinidine (Nuedexta Capsule) 1 cap DAILY ORAL 08/05/17 09:00 09/04/17 08:59 08/08/17 08:48 Dextromethorphan/ Quinidine (Nuedexta Capsule) 1 cap Q12H PRN ORAL increased lability 08/04/17 19:45 09/03/17 19:44 08/07/17 17:18 Docusate Sodium (Colace) 100 mg TWICE A DAY ORAL 08/07/17 18:00 09/06/17 17:59 08/08/17 08:47 Escitalopram Oxalate (Lexapro) 10 mg DAILY ORAL 08/05/17 09:00 09/04/17 08:59 08/08/17 08:47 Gentamicin Protocol (Gentamicin pharmacy to dose) 1 ea DAILY PRN MISC Per rx protocol 08/06/17 14:15 09/05/17 14:14 Gentamicin Sulfate 300 mg/ Sodium Chloride 117.5 ml @ 117.5 mls/ hr Q36H IVPB 08/08/17 09:00 08/15/17 23:59 08/08/17 10:05 Latanoprost (Xalatan) 1 drop BEDTIME BOTH EYES 08/04/17 21:00 09/03/17 20:59 08/07/17 21:23 Lisinopril (Zestril) 5 mg DAILY ORAL 08/05/17 09:00 09/04/17 08:59 08/08/17 08:48 Phenytoin (Dilantin) 100 mg DAILY ORAL 08/05/17 09:00 09/04/17 08:59 08/08/17 08:48 Phenytoin (Dilantin) 200 mg BEDTIME ORAL 08/04/17 21:00 09/03/17 20:59 08/07/17 20:07 Ramelteon (Rozerem) 8 mg QHS ORAL 08/04/17 21:00 09/03/17 20:59 08/07/17 20:07 Sodium Chloride 1,000 ml @ 100 mls/hr Q10H IV 08/04/17 16:15 09/03/17 16:14 08/08/17 10:05 Height (Feet): 5 Height (Inches): 7.00 Weight (Pounds): 149 General Appearance: alert, non-toxic, other - smiling Head: normocephalic, atraumatic Eyes: bilateral anicteric ENT: normal voice Neck: full range of motion, no mass Respiratory: lungs clear Cardiovascular: regular rate, rhythm Gastrointestinal: normal bowel sounds, non tender, soft, no mass, no organomegaly, non-distended Musculoskeletal: no calf tenderness Edema: no edema noted Generalized Neurologic: no new focality ESTEFANY LOZANO August 08, 2017 14:50
[2017-08-08 16:00] VITALS: BP 159/72
[2017-08-08] MEDS: Bactrim-DS 1 tab ORAL SCH (17:25)
--- NOTE | 2017-08-08 18:55 | Infectious Diseases Prog Note ---
Assessment/Plan Assessment/Plan A) 1) e.coli uti, complicated uti, encephalopathy, ? sepsis - clinically stable , more alert 2) cva, depression, ibs, glaucoma, cataracts, dementia, abnormal gate, elevated lipase/amylase, rhabdo, weakness, paranoia, sz, pmh noted 3) allergies - pcn 4) sh-negative, fh-nc, mar noted, notes and records noted 5) d/w RN P) 1) gentamicin - day # 4 abx 2) can transition to oral bactrim to finish abx course, plan on 10 total tx course 3) watch cr closely 4) f/u on labs 5) d/w Dr. Duval about abx tx Subjective Constitutional: Denies: fever, fatigue HEENT: Denies: congestion Respiratory: Denies: shortness of breath Cardiovascular: Denies: chest pain Gastrointestinal/Abdominal: Denies: nausea, vomiting, diarrhea Genitourinary: Reports: other - no lara; Denies: dysuria, hematuria, frequency Neurologic: Denies: headache Psychiatric: Denies: depression Skin: Denies: rash Hematologic: Denies: bleeding Musculoskeletal: Denies: pain Allergies: Coded Allergies: PENICILLINS (Verified Allergy, Unknown, 06/05/15) Objective Vital Signs Last 24 Hour Vital Signs Date Time Temp Pulse Resp B/P (MAP) Pulse Ox O2 Delivery O2 Flow Rate FiO2 08/08/17 16:00 98.0 67 17 159/72 96 Room Air 98.0 08/08/17 12:00 98.2 85 16 135/90 97 Room Air 98.2 08/08/17 08:48 142/83 08/08/17 08:00 97.5 77 14 142/83 97 Room Air 97.5 08/08/17 04:00 97.6 66 18 143/89 97 97.6 08/08/17 00:00 98.0 63 18 149/99 97 98.0 08/07/17 20:00 98.3 63 18 157/83 94 98.3 Height (Feet): 5 Height (Inches): 7.00 Weight (Pounds): 149 General Appearance: no acute distress HEENT: normocephalic, atraumatic, anicteric, mucous membranes moist Respiratory/Chest: lungs clear, normal breath sounds, no respiratory distress, no accessory muscle use Cardiovascular: normal rate, regular rhythm Abdomen: normal bowel sounds, soft, non tender, no organomegaly, non distended Genitourinary: other - no lara, no cva pain Extremities: no cyanosis Skin: no rash 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 Limited exam, as described Trace ascites fluid No other definite acute abnormality demonstrated Colonic diverticulosis. No evidence of diverticulitis Chest x-ray - nad Microbiology Date/Time Source Procedure Growth Status 08/04/17 11:00 Blood Blood Culture - Preliminary NO GROWTH AFTER 72 HOURS Resulted 08/04/17 11:03 Nasal Nares MRSA Culture - Final NO METHICILLIN RESISTANT STAPH AUREUS... Complete 08/04/17 11:00 Urine,Clean Catch Urine Culture - Final Escherichia Coli Complete 08/04/17 11:03 Rectum VRE Culture - Final Enterococcus Faecalis - Vre Complete Laboratory Tests Test 08/08/17 06:00 White Blood Count 7.1 K/UL (4.8-10.8) Red Blood Count 4.61 M/UL (4.20-5.40) Hemoglobin 14.5 G/DL (12.0-16.0) Hematocrit 42.2 % (37.0-47.0) Mean Corpuscular Volume 91 FL (80-99) Mean Corpuscular Hemoglobin 31.5 PG (27.0-31.0) H Mean Corpuscular Hemoglobin Concent 34.5 G/DL (32.0-36.0) Red Cell Distribution Width 11.4 % (11.6-14.8) L Platelet Count 148 K/UL (150-450) L Mean Platelet Volume 9.7 FL (6.5-10.1) Neutrophils (%) (Auto) 73.8 % (45.0-75.0) Lymphocytes (%) (Auto) 18.7 % (20.0-45.0) L Monocytes (%) (Auto) 6.2 % (1.0-10.0) Eosinophils (%) (Auto) 0.3 % (0.0-3.0) Basophils (%) (Auto) 0.9 % (0.0-2.0) Sodium Level 141 MMOL/L (136-145) Potassium Level 3.5 MMOL/L (3.5-5.1) Chloride Level 104 MMOL/L (98-107) Carbon Dioxide Level 25 MMOL/L (21-32) Anion Gap 12 mmol/L (5-15) Blood Urea Nitrogen 7 mg/dL (7-18) Creatinine 0.9 MG/DL (0.55-1.30) Estimat Glomerular Filtration Rate mL/min (>60) Glucose Level 106 MG/DL (74-106) Calcium Level 8.9 MG/DL (8.5-10.1) Total Bilirubin 0.8 MG/DL (0.2-1.0) Direct Bilirubin 0.2 MG/DL (0.0-0.3) Aspartate Amino Transf (AST/SGOT) 78 U/L (15-37) H Alanine Aminotransferase (ALT/SGPT) 42 U/L (12-78) Alkaline Phosphatase 107 U/L (46-116) Total Creatine Kinase 1010 U/L (26-308) H Total Protein 7.5 G/DL (6.4-8.2) Albumin 3.9 G/DL (3.4-5.0) Amylase Level 73 U/L (25-115) Lipase 201 U/L (73-393) Current Medications Medications (Trade) Dose Ordered Sig/Martha Route PRN Reason Start Time Stop Time Status Last Admin Dose Admin Acetaminophen (Tylenol) 500 mg Q8H PRN ORAL Prn Headache/Temp > 101 08/04/17 18:15 09/03/17 18:14 Alprazolam (Xanax) 0.25 mg Q6H PRN ORAL For Anxiety 08/04/17 20:00 08/11/17 19:59 08/08/17 01:06 Aspirin (Ecotrin) 81 mg DAILY ORAL 08/05/17 09:00 09/04/17 08:59 08/08/17 08:47 Bisacodyl (Dulcolax) 10 mg DAILYPRN PRN RECTAL Constipation 08/07/17 11:00 09/06/17 10:59 08/08/17 08:48 Dextromethorphan/ Quinidine (Nuedexta Capsule) 1 cap DAILY ORAL 08/05/17 09:00 09/04/17 08:59 08/08/17 08:48 Dextromethorphan/ Quinidine (Nuedexta Capsule) 1 cap Q12H PRN ORAL increased lability 08/04/17 19:45 09/03/17 19:44 08/07/17 17:18 Docusate Sodium (Colace) 100 mg TWICE A DAY ORAL 08/07/17 18:00 09/06/17 17:59 08/08/17 17:25 Escitalopram Oxalate (Lexapro) 10 mg DAILY ORAL 08/05/17 09:00 09/04/17 08:59 08/08/17 08:47 Latanoprost (Xalatan) 1 drop BEDTIME BOTH EYES 08/04/17 21:00 09/03/17 20:59 08/07/17 21:23 Lisinopril (Zestril) 5 mg DAILY ORAL 08/05/17 09:00 09/04/17 08:59 08/08/17 08:48 Phenytoin (Dilantin) 100 mg DAILY ORAL 08/05/17 09:00 09/04/17 08:59 08/08/17 08:48 Phenytoin (Dilantin) 200 mg BEDTIME ORAL 08/04/17 21:00 09/03/17 20:59 08/07/17 20:07 Ramelteon (Rozerem) 8 mg QHS ORAL 08/04/17 21:00 09/03/17 20:59 08/07/17 20:07 Sodium Chloride 1,000 ml @ 100 mls/hr Q10H IV 08/04/17 16:15 09/03/17 16:14 08/08/17 10:05 Trimethoprim/ Sulfamethoxazole (Bactrim-DS) 1 tab TWICE A DAY ORAL 08/08/17 18:00 08/15/17 17:59 08/08/17 17:25 Eun Ribera MD August 08, 2017 18:55
[2017-08-08 20:00] VITALS: BP 150/78
[2017-08-08] MEDS: Ramelteon 8mg tab (Approved for Delirium use only) ORAL SCH (21:26)
[2017-08-08] MEDS: Latanoprost 0.005% Opth 2.5ml Soln BOTH EYES SCH (21:28)
[2017-08-09] VITALS: BP 135/67
[2017-08-09 04:00] VITALS: BP 145/70
[2017-08-09 08:00] VITALS: BP 150/70
[2017-08-09 08:04] LABS: BASOPHILS % (AUTO) 1.3 % (0.0-2.0); EOSINOPHILS % (AUTO) 1.5 % (0.0-3.0); HEMATOCRIT 36.8 % (37.0-47.0); HEMOGLOBIN 12.6 G/DL (12.0-16.0); LYMPHOCYTES % (AUTO) 30.1 % (20.0-45.0); MEAN CORPUSCULAR VOLUME 93 FL (80-99); MONOCYTES % (AUTO) 6.9 % (1.0-10.0); NEUTROPHILS % (AUTO) 60.3 % (45.0-75.0); PLATELET COUNT 116 K/UL (150-450); RED BLOOD COUNT 3.97 M/UL (4.20-5.40); RED CELL DISTRIBUTION WIDTH 11.7 % (11.6-14.8)
[2017-08-09 08:18] LABS: ALANINE AMINOTRANSFERASE 33 U/L (12-78); ALBUMIN/GLOBULIN RATIO 0.9 (1.0-2.7); ALKALINE PHOSPHATASE 84 U/L (46-116); ANION GAP 5 mmol/L (5-15); ASPARTATE AMINO TRANSFERASE 53 U/L (15-37); BILIRUBIN,TOTAL 0.4 MG/DL (0.2-1.0); CALCIUM 7.9 MG/DL (8.5-10.1); CARBON DIOXIDE 28 MMOL/L (21-32); CHLORIDE 108 MMOL/L (98-107); CREATINE KINASE 868 U/L (26-308); CREATININE 0.9 MG/DL (0.55-1.30); LACTATE DEHYDROGENASE 255 U/L (81-234); POTASSIUM 3.4 MMOL/L (3.5-5.1); SODIUM 141 MMOL/L (136-145)
[2017-08-09 08:27] LABS: BLOOD UREA NITROGEN 8 mg/dL (7-18)
[2017-08-09] MEDS: Phenytoin 100mg cap ORAL SCH ×2 (08:39→21:12)
[2017-08-09] MEDS: Aspirin EC 81mg tab ORAL SCH (08:42)
[2017-08-09] MEDS: Acetaminophen 500mg (ES) tab ORAL PRN (08:42)
[2017-08-09] MEDS: Lisinopril 10mg tab ORAL SCH (08:42)
[2017-08-09] MEDS: Nuedexta Capsule 20/10mg ORAL SCH (08:42)
[2017-08-09] MEDS: Docusate 100mg cap ORAL SCH ×2 (08:42→18:00)
[2017-08-09] MEDS: ALPRAZolam 0.25mg tab ORAL PRN (08:42)
[2017-08-09] MEDS: Bactrim-DS 1 tab ORAL SCH ×2 (08:43→18:00)
--- NOTE | 2017-08-09 09:15 | Consultation ---
DATE OF CONSULTATION: 08/07/2017 NOTE: "POOR AUDIO QUALITY" INFECTIOUS DISEASE CONSULTATION ATTENDING PHYSICIAN: Darrion Duval M.D. REFERRING PHYSICIAN: I was asked by Dr. Fany Smith to see this patient. REASON FOR CONSULTATION: Complicated E. coli UTI. CHIEF COMPLAINT: The patient's chief complaint coming into the hospital was sepsis and UTI. HISTORY OF PRESENT ILLNESS: This is an 87-year-old female, who presented to [facility] with agitation and confusion. The patient has history of multiple medical problems. The patient presented to [facility] with confusion. It was noted that she had a urinalysis that had 3+ leukocyte esterase, too many to count white blood cells. The patient likely has complicated UTI with possible sepsis and confusion. The patient was started on gentamicin because she did grow out E. coli. She does have penicillin allergy, which restricts antibiotic choice such as cephalosporins. The case was communicated with Dr. Smith and at this time, we will continue with gentamicin for the complicated E. coli UTI with confusion and possible sepsis. MAR was noted. Orders were reviewed. Notes were reviewed. Case was discussed with RN at length also. REVIEW OF SYSTEMS: CONSTITUTIONAL: The patient is not a very good historian. She is responsive, but she came in with confusion and what looks like paranoid symptoms. The patient currently has no fever, no chills. She has generalized fatigue. No new focal weakness. No night sweats or weight loss mentioned per their history. She comes in with encephalopathy and confusion. HEAD AND NECK: No head pain or neck pain. No thrush or dysphagia. CARDIAC: No chest pain or palpitations. GASTROINTESTINAL: No nausea, vomiting, or diarrhea. GENITOURINARY: No Nvees. PULMONARY: No congestion, shortness of breath, hemoptysis, or secretions. SKIN: No rash or itching. EXTREMITIES: No extremity pain. NEUROLOGIC: No seizures. PAST MEDICAL HISTORY: The patient's past medical history includes the history of following. She has history of hemorrhagic CVA, history of partial seizures, history of irritable bowel syndrome, depression, paranoia, history of dementia, vascular dementia, labile affect, history of knee replacement, history of bunionectomy, history of cataract, history of left hip and wrist fractures, history of gait disorder, glaucoma, history of falls, history of gait instability, history of transient hypoglycemia, history of toxic metabolic encephalopathy. She has possible history of hypertension, she is on lisinopril. ALLERGIES: Penicillins. Nature allergies unclear. FAMILY HISTORY: Per the records, there is no mention of exposure to tuberculosis or cancer. SOCIAL HISTORY: Per the records, no mention of smoking, alcohol, or drug abuse. MEDICATIONS: Upon reviewing the MAR, she is on following medications. She is on docusate. She is on bisacodyl, potassium, gentamicin. She is on lorazepam. She is on Nuedexta, aspirin. She is on Lexapro, Zestril, Dilantin, phenytoin, Xalatan, Xanax, Tylenol. Outside medications noted and reconciliated. She was on lisinopril as an outpatient. PHYSICAL EXAMINATION: VITAL SIGNS: Temperature 97.6, pulse rate 66, respiratory rate 20, blood pressure 152/75, and saturation 97%. GENERAL: Alert and responsive, in no acute distress, somewhat confused. HEAD AND NECK: Oral exam, no thrush. Eye exam, no icterus. No JVD. Normocephalic. No facial droop. No neck stiffness. Neck is supple. HEART: Regular. No obvious gallop or murmur. ABDOMEN: Soft. Positive bowel sounds. Nontender. LUNGS: Clear bilaterally. No rhonchi or rales. SKIN: No rash. MUSCULOSKELETAL: No effusion. Legs are without cellulitis. PERIPHERAL VASCULAR: No cyanosis or gangrene. GENITOURINARY: No Neves. LINES: Line sites without phlebitis. NEUROLOGIC: Generalized weakness and responsive. LABORATORY DATA: Cultures, urine culture grew out E. coli, sensitivities were noted. VRE screen is positive. Blood cultures are negative. Urinalysis had 3+ leukocyte esterase, too many to count white blood cells, moderate bacteria. Creatinine 0.9. White count 4.9, hemoglobin 13.2, and platelet count is 128,000. IMAGING STUDIES: CT scan of the abdomen and pelvis, trace ascites, no definitive acute abnormality demonstrated, diverticulosis without diverticulitis. Chest x-ray was negative, no acute disease, no pneumonia, this was noted and reviewed. ASSESSMENT AND PLAN: 1. The patient has complicated E. coli UTI with confusion and encephalopathy. The patient has possible sepsis. The patient has significantly positive urinalysis and urine culture positive for E. coli. Sensitivities noted. Because of the allergies, we have restricted the antibiotic choices. It is unclear of the nature of the penicillin allergy. The patient is currently on gentamicin, it is day #3, which I agree with. Plan on a 10-day course of antibiotics since the urinalysis is significantly positive with too many to count white blood cells. watch creatinine closely. 2. The patient has history of confusion and metabolic toxic encephalopathy. 3. CVA. 4. Hemorrhagic stroke. 5. Partial seizure. 6. Irritable bowel syndrome. 7. Depression and paranoia. 8. Vascular dementia. 9. Labile affect. 10. History of knee replacement. 11. History of cataracts. 12. History of fractures. 13. History of falls. 14. Gait abnormality. 15. Glaucoma. 16. Possible hypertension. The patient is on lisinopril. 17. Allergies to penicillin. 18. Social history negative. 19. Family history noncontributory. 20. MAR was noted. 21. Case discussed with RN. 22. Continue treatment per primary consultants. 23. Case communicated with Dr. Smith. Eun Ribera M.D. DR: ANG JOB#: [id number] CC: PAO
[2017-08-09 12:00] VITALS: BP 133/56
--- NOTE | 2017-08-09 14:51 | Infectious Diseases Prog Note ---
Assessment/Plan Assessment/Plan A) 1) e.coli uti, complicated uti, encephalopathy, ? sepsis - clinically stable , more alert 2) cva, depression, ibs, glaucoma, cataracts, dementia, abnormal gate, elevated lipase/amylase, rhabdo, weakness, paranoia, sz, pmh noted 3) allergies - pcn 4) sh-negative, fh-nc, mar noted, notes and records noted 5) d/w RN P) 1) bactrim - day # 5/10 antibiotics 2) clinically stable ID standpoint 3) watch cr closely 4) f/u on labs 5) continue tx per Dr. Duval 6) vre colonization Subjective Constitutional: Reports: fatigue; Denies: fever, chills HEENT: Denies: congestion Respiratory: Denies: shortness of breath Cardiovascular: Denies: chest pain Gastrointestinal/Abdominal: Denies: nausea, vomiting, diarrhea Genitourinary: Reports: other - no lara Neurologic: Denies: headache Psychiatric: Denies: depression Skin: Denies: rash Hematologic: Denies: bleeding Musculoskeletal: Denies: pain Allergies: Coded Allergies: PENICILLINS (Verified Allergy, Unknown, 06/05/15) Objective Vital Signs Last 24 Hour Vital Signs Date Time Temp Pulse Resp B/P (MAP) Pulse Ox O2 Delivery O2 Flow Rate FiO2 08/09/17 12:00 97.5 62 20 133/56 97 97.5 08/09/17 08:42 150/70 08/09/17 08:00 97.7 65 20 150/70 97 97.7 08/09/17 04:00 97.5 58 20 145/70 97 97.5 08/09/17 00:00 98.8 65 20 135/67 100 98.8 08/08/17 20:00 98.5 64 20 150/78 97 98.5 08/08/17 16:00 98.0 67 17 159/72 96 Room Air 98.0 Height (Feet): 5 Height (Inches): 7.00 Weight (Pounds): 149 General Appearance: no acute distress HEENT: normocephalic, atraumatic, anicteric, mucous membranes moist Respiratory/Chest: lungs clear, normal breath sounds, no respiratory distress, no accessory muscle use Cardiovascular: normal rate, regular rhythm, no gallop/murmur, no JVD Abdomen: normal bowel sounds, soft, non tender, no organomegaly, non distended Genitourinary: other - no lara Extremities: no cyanosis Skin: no rash 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 Limited exam, as described Trace ascites fluid No other definite acute abnormality demonstrated Colonic diverticulosis. No evidence of diverticulitis Chest x-ray - nad Microbiology Date/Time Source Procedure Growth Status 08/04/17 11:00 Blood Blood Culture - Preliminary NO GROWTH AFTER 4 DAYS Resulted 08/04/17 11:03 Nasal Nares MRSA Culture - Final NO METHICILLIN RESISTANT STAPH AUREUS... Complete 08/04/17 11:00 Urine,Clean Catch Urine Culture - Final Escherichia Coli Complete 08/04/17 11:03 Rectum VRE Culture - Final Enterococcus Faecalis - Vre Complete Laboratory Tests Test 08/09/17 07:00 08/09/17 07:05 Aldolase Pending White Blood Count 4.0 K/UL (4.8-10.8) L Red Blood Count 3.97 M/UL (4.20-5.40) L Hemoglobin 12.6 G/DL (12.0-16.0) Hematocrit 36.8 % (37.0-47.0) L Mean Corpuscular Volume 93 FL (80-99) Mean Corpuscular Hemoglobin 31.6 PG (27.0-31.0) H Mean Corpuscular Hemoglobin Concent 34.1 G/DL (32.0-36.0) Red Cell Distribution Width 11.7 % (11.6-14.8) Platelet Count 116 K/UL (150-450) L Mean Platelet Volume 9.6 FL (6.5-10.1) Neutrophils (%) (Auto) 60.3 % (45.0-75.0) Lymphocytes (%) (Auto) 30.1 % (20.0-45.0) Monocytes (%) (Auto) 6.9 % (1.0-10.0) Eosinophils (%) (Auto) 1.5 % (0.0-3.0) Basophils (%) (Auto) 1.3 % (0.0-2.0) Erythrocyte Sedimentation Rate 26 MM/HR (0-30) Sodium Level 141 MMOL/L (136-145) Potassium Level 3.4 MMOL/L (3.5-5.1) L Chloride Level 108 MMOL/L (98-107) H Carbon Dioxide Level 28 MMOL/L (21-32) Anion Gap 5 mmol/L (5-15) Blood Urea Nitrogen 8 mg/dL (7-18) Creatinine 0.9 MG/DL (0.55-1.30) Estimat Glomerular Filtration Rate mL/min (>60) Glucose Level 96 MG/DL (74-106) Calcium Level 7.9 MG/DL (8.5-10.1) L Total Bilirubin 0.4 MG/DL (0.2-1.0) Aspartate Amino Transf (AST/SGOT) 53 U/L (15-37) H Alanine Aminotransferase (ALT/SGPT) 33 U/L (12-78) Alkaline Phosphatase 84 U/L (46-116) Lactate Dehydrogenase 255 U/L (81-234) H Total Creatine Kinase 868 U/L (26-308) H C-Reactive Protein, Quantitative 2.0 mg/dL (0.00-0.90) H Total Protein 6.3 G/DL (6.4-8.2) L Albumin 3.0 G/DL (3.4-5.0) L Globulin 3.3 g/dL Albumin/Globulin Ratio 0.9 (1.0-2.7) L Current Medications Medications (Trade) Dose Ordered Sig/Martha Route PRN Reason Start Time Stop Time Status Last Admin Dose Admin Acetaminophen (Tylenol) 500 mg Q8H PRN ORAL Prn Headache/Temp > 101 08/04/17 18:15 09/03/17 18:14 08/09/17 08:42 Alprazolam (Xanax) 0.25 mg Q6H PRN ORAL For Anxiety 08/04/17 20:00 08/11/17 19:59 08/09/17 08:42 Aspirin (Ecotrin) 81 mg DAILY ORAL 08/05/17 09:00 09/04/17 08:59 08/09/17 08:42 Bisacodyl (Dulcolax) 10 mg DAILYPRN PRN RECTAL Constipation 08/07/17 11:00 09/06/17 10:59 08/08/17 08:48 Dextromethorphan/ Quinidine (Nuedexta Capsule) 1 cap DAILY ORAL 08/05/17 09:00 09/04/17 08:59 08/09/17 08:42 Dextromethorphan/ Quinidine (Nuedexta Capsule) 1 cap Q12H PRN ORAL increased lability 08/04/17 19:45 09/03/17 19:44 08/07/17 17:18 Docusate Sodium (Colace) 100 mg TWICE A DAY ORAL 08/07/17 18:00 09/06/17 17:59 08/09/17 08:42 Escitalopram Oxalate (Lexapro) 10 mg DAILY ORAL 08/05/17 09:00 09/04/17 08:59 08/09/17 08:42 Latanoprost (Xalatan) 1 drop BEDTIME BOTH EYES 08/04/17 21:00 09/03/17 20:59 08/08/17 21:28 Lisinopril (Zestril) 5 mg DAILY ORAL 08/05/17 09:00 09/04/17 08:59 08/09/17 08:42 Phenytoin (Dilantin) 100 mg DAILY ORAL 08/05/17 09:00 09/04/17 08:59 08/09/17 08:39 Phenytoin (Dilantin) 200 mg BEDTIME ORAL 08/04/17 21:00 09/03/17 20:59 08/08/17 21:26 Ramelteon (Rozerem) 8 mg QHS ORAL 08/04/17 21:00 09/03/17 20:59 08/08/17 21:26 Sodium Chloride 1,000 ml @ 100 mls/hr Q10H IV 08/04/17 16:15 09/03/17 16:14 08/09/17 06:14 Trimethoprim/ Sulfamethoxazole (Bactrim-DS) 1 tab TWICE A DAY ORAL 08/08/17 18:00 08/15/17 17:59 08/09/17 08:43 Eun Ribera MD August 09, 2017 14:51
[2017-08-09 15:45] VITALS: BP 130/67
[2017-08-09 20:00] VITALS: BP 145/71
[2017-08-09] MEDS: Ramelteon 8mg tab (Approved for Delirium use only) ORAL SCH (21:12)
[2017-08-09] MEDS: Latanoprost 0.005% Opth 2.5ml Soln BOTH EYES SCH (21:13)
--- NOTE | 2017-08-09 21:24 | General Progress Note ---
Assessment/Plan Assessment/Plan Assessment - Resolved hyperlipasemia - transient dilation of biliary tree - mildly elevated AST - presentation c/w passed stone - Rhabdo Recommendations - po diet - follow labs and exam - conservative management, given age/dementia - d/c planning Subjective Allergies: Coded Allergies: PENICILLINS (Verified Allergy, Unknown, 06/05/15) Subjective Feels OK no new symptoms no abd pain Objective Last 24 Hour Vital Signs Date Time Temp Pulse Resp B/P (MAP) Pulse Ox O2 Delivery O2 Flow Rate FiO2 08/09/17 20:00 98.0 55 20 145/71 97 98.0 08/09/17 15:45 97.9 62 20 130/67 96 Room Air 97.9 08/09/17 12:00 97.5 62 20 133/56 97 97.5 08/09/17 08:42 150/70 08/09/17 08:00 97.7 65 20 150/70 97 97.7 08/09/17 04:00 97.5 58 20 145/70 97 97.5 08/09/17 00:00 98.8 65 20 135/67 100 98.8 Intake and Output 08/08/17 08/09/17 19:00 07:00 Intake Total 600 ml 800 ml Balance 600 ml 800 ml Intake Oral 500 ml IV Total 100 ml 800 ml # Voids 4 4 # Bowel Movements 1 Laboratory Tests 08/09/17 07:00: Aldolase [Pending] 08/09/17 07:05: White Blood Count 4.0L, Red Blood Count 3.97L, Hemoglobin 12.6, Hematocrit 36.8L , Mean Corpuscular Volume 93, Mean Corpuscular Hemoglobin 31.6H, Mean Corpuscular Hemoglobin Concent 34.1, Red Cell Distribution Width 11.7, Platelet Count 116L, Mean Platelet Volume 9.6, Neutrophils (%) (Auto) 60.3, Lymphocytes ( %) (Auto) 30.1, Monocytes (%) (Auto) 6.9, Eosinophils (%) (Auto) 1.5, Basophils (%) (Auto) 1.3, Erythrocyte Sedimentation Rate 26, Sodium Level 141, Potassium Level 3.4L, Chloride Level 108H, Carbon Dioxide Level 28, Anion Gap 5, Blood Urea Nitrogen 8, Creatinine 0.9, Estimat Glomerular Filtration Rate , Glucose Level 96, Calcium Level 7.9L, Total Bilirubin 0.4, Aspartate Amino Transf (AST/ SGOT) 53H, Alanine Aminotransferase (ALT/SGPT) 33, Alkaline Phosphatase 84, Lactate Dehydrogenase 255H, Total Creatine Kinase 868H, C-Reactive Protein, Quantitative 2.0H, Total Protein 6.3L, Albumin 3.0L, Globulin 3.3, Albumin/ Globulin Ratio 0.9L Height (Feet): 5 Height (Inches): 7.00 Weight (Pounds): 149 Manpreet Flores MD August 09, 2017 21:24
--- NOTE | 2017-08-09 21:34 | Geriatric Progress Note ---
Assessment/Plan Problems: (1) Elevated lipase (2) Elevated amylase (3) Toxic metabolic encephalopathy (4) Vascular dementia (5) Gait instability (6) Rhabdomyolysis (7) UTI (urinary tract infection) Assessment/Plan UTI on Bactrim po. Encephalopathy clearing, presumably associated with passed stone, pancreatitis + /- UTI. Functionally debilitated vs. pre-fracture and even vs. recent baseline. Discussed with dtr, wishes to attempt SNF rehab course to improve strength, mobility. DC planning attempting to arrange a bed. Otherwise continue present regimen. Dictated #[id number] Discussed with: patient, family, hospital staff Subjective Interval Events Patien more cheerful, better oriented. Denies c/o. Staff noted no b.m. today, however, not bloated or c/o. Intake variable. Repeat labs with improved CK, elevated LDH, pending aldolase, c/w rhabdomyolysis. Dtr back in [facility], reviewed dx, course, status in detail. Limited mobilization with P.T. Constitutional: Denies: pain Respiratory: Denies: shortness of breath Cardiovascular: Denies: chest pain Genitourinary: Denies: dysuria Subjective Denies all sxs, but responses unreliable. Geriatric Geriatric Last 24 Hour Vital Signs Date Time Temp Pulse Resp B/P (MAP) Pulse Ox O2 Delivery O2 Flow Rate FiO2 08/09/17 20:00 98.0 55 20 145/71 97 98.0 08/09/17 15:45 97.9 62 20 130/67 96 Room Air 97.9 08/09/17 12:00 97.5 62 20 133/56 97 97.5 08/09/17 08:42 150/70 08/09/17 08:00 97.7 65 20 150/70 97 97.7 08/09/17 04:00 97.5 58 20 145/70 97 97.5 08/09/17 00:00 98.8 65 20 135/67 100 98.8 Intake and Output 08/08/17 08/09/17 19:00 07:00 Intake Total 600 ml 800 ml Balance 600 ml 800 ml Intake Oral 500 ml IV Total 100 ml 800 ml # Voids 4 4 # Bowel Movements 1 Laboratory Tests Test 08/09/17 07:00 08/09/17 07:05 Aldolase Pending White Blood Count 4.0 K/UL (4.8-10.8) L Red Blood Count 3.97 M/UL (4.20-5.40) L Hemoglobin 12.6 G/DL (12.0-16.0) Hematocrit 36.8 % (37.0-47.0) L Mean Corpuscular Volume 93 FL (80-99) Mean Corpuscular Hemoglobin 31.6 PG (27.0-31.0) H Mean Corpuscular Hemoglobin Concent 34.1 G/DL (32.0-36.0) Red Cell Distribution Width 11.7 % (11.6-14.8) Platelet Count 116 K/UL (150-450) L Mean Platelet Volume 9.6 FL (6.5-10.1) Neutrophils (%) (Auto) 60.3 % (45.0-75.0) Lymphocytes (%) (Auto) 30.1 % (20.0-45.0) Monocytes (%) (Auto) 6.9 % (1.0-10.0) Eosinophils (%) (Auto) 1.5 % (0.0-3.0) Basophils (%) (Auto) 1.3 % (0.0-2.0) Erythrocyte Sedimentation Rate 26 MM/HR (0-30) Sodium Level 141 MMOL/L (136-145) Potassium Level 3.4 MMOL/L (3.5-5.1) L Chloride Level 108 MMOL/L (98-107) H Carbon Dioxide Level 28 MMOL/L (21-32) Anion Gap 5 mmol/L (5-15) Blood Urea Nitrogen 8 mg/dL (7-18) Creatinine 0.9 MG/DL (0.55-1.30) Estimat Glomerular Filtration Rate mL/min (>60) Glucose Level 96 MG/DL (74-106) Calcium Level 7.9 MG/DL (8.5-10.1) L Total Bilirubin 0.4 MG/DL (0.2-1.0) Aspartate Amino Transf (AST/SGOT) 53 U/L (15-37) H Alanine Aminotransferase (ALT/SGPT) 33 U/L (12-78) Alkaline Phosphatase 84 U/L (46-116) Lactate Dehydrogenase 255 U/L (81-234) H Total Creatine Kinase 868 U/L (26-308) H C-Reactive Protein, Quantitative 2.0 mg/dL (0.00-0.90) H Total Protein 6.3 G/DL (6.4-8.2) L Albumin 3.0 G/DL (3.4-5.0) L Globulin 3.3 g/dL Albumin/Globulin Ratio 0.9 (1.0-2.7) L Current Medications Medications (Trade) Dose Ordered Sig/Martha Route PRN Reason Start Time Stop Time Status Last Admin Dose Admin Acetaminophen (Tylenol) 500 mg Q8H PRN ORAL Prn Headache/Temp > 101 08/04/17 18:15 09/03/17 18:14 08/09/17 08:42 Alprazolam (Xanax) 0.25 mg Q6H PRN ORAL For Anxiety 08/04/17 20:00 08/11/17 19:59 08/09/17 08:42 Aspirin (Ecotrin) 81 mg DAILY ORAL 08/05/17 09:00 09/04/17 08:59 08/09/17 08:42 Bisacodyl (Dulcolax) 10 mg DAILYPRN PRN RECTAL Constipation 08/07/17 11:00 09/06/17 10:59 08/08/17 08:48 Dextromethorphan/ Quinidine (Nuedexta Capsule) 1 cap DAILY ORAL 08/05/17 09:00 09/04/17 08:59 08/09/17 08:42 Dextromethorphan/ Quinidine (Nuedexta Capsule) 1 cap Q12H PRN ORAL increased lability 08/04/17 19:45 09/03/17 19:44 08/07/17 17:18 Docusate Sodium (Colace) 100 mg TWICE A DAY ORAL 08/07/17 18:00 09/06/17 17:59 08/09/17 18:00 Escitalopram Oxalate (Lexapro) 10 mg DAILY ORAL 08/05/17 09:00 09/04/17 08:59 08/09/17 08:42 Latanoprost (Xalatan) 1 drop BEDTIME BOTH EYES 08/04/17 21:00 09/03/17 20:59 08/09/17 21:13 Lisinopril (Zestril) 5 mg DAILY ORAL 08/05/17 09:00 09/04/17 08:59 08/09/17 08:42 Phenytoin (Dilantin) 100 mg DAILY ORAL 08/05/17 09:00 09/04/17 08:59 08/09/17 08:39 Phenytoin (Dilantin) 200 mg BEDTIME ORAL 08/04/17 21:00 09/03/17 20:59 08/09/17 21:12 Ramelteon (Rozerem) 8 mg QHS ORAL 08/04/17 21:00 09/03/17 20:59 08/09/17 21:12 Sodium Chloride 1,000 ml @ 100 mls/hr Q10H IV 08/04/17 16:15 09/03/17 16:14 08/09/17 18:00 Trimethoprim/ Sulfamethoxazole (Bactrim-DS) 1 tab TWICE A DAY ORAL 08/08/17 18:00 08/15/17 17:59 08/09/17 18:00 Height (Feet): 5 Height (Inches): 7.00 Weight (Pounds): 149 General Appearance: alert, other - smiling Head: normocephalic, atraumatic Eyes: bilateral anicteric ENT: normal voice Neck: full range of motion, no mass Respiratory: lungs clear Cardiovascular: regular rate, rhythm Gastrointestinal: normal bowel sounds, non tender, soft, no mass, no organomegaly, non-distended Musculoskeletal: no calf tenderness Edema: no edema noted Generalized Neurologic: no new focality ESTEFANY LOZANO August 09, 2017 21:34
[2017-08-09] MEDS ORDERED: ROZEREM8 MG ORAL (21:39)
[2017-08-09] MEDS ORDERED: BACTRIM-DS1 EA ORAL (21:39)
[2017-08-09] MEDS ORDERED: COLACE100 MG ORAL (21:39)
[2017-08-09] MEDS ORDERED: XALATAN2.5 ML BOTH EYES (21:39)
[2017-08-10] VITALS: BP 135/81
--- NOTE | 2017-08-10 00:45 | Discharge Summary ---
DATE OF ADMISSION: 08/04/2017 DATE OF DISCHARGE: 08/10/2017 DISCHARGE DIAGNOSES: 1. Chemical pancreatitis likely associated with passed gallstone, resolved. 2. Rhabdomyolysis of uncertain etiology, possibly associated with unknown trauma, possibly associated with use of CBD oil. 3. Urinary tract infection secondary to E. coli. 4. Encephalopathy with paranoia associated with the above. 5. 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 6. Simple partial seizures. 7. Irritable bowel syndrome, diarrhea predominant. 8. History of depression and paranoia. 9. Vascular dementia. 10. Labile affect. 11. Status post knee replacement in , right knee. 12. Status post bunionectomy in . 13. Cataract extraction in 2012. 14. Left hip and wrist fractures in 2013. 15. Fall with left tibial intra-articular fracture in February 2017. 16. Gait disorder. 17. Glaucoma. HISTORY OF PRESENT ILLNESS: The patient is an 87-year-old woman, who was noted to have increased agitation and confusion at the [facility]. She was brought to the emergency room and noted to have possible urinary tract infection, which had been partially treated with one dose of outpatient antibiotics as well as evidence of hyperlipasemia and elevated creatine kinase. The patient was admitted for further evaluation and treatment. Details of the history and physical examination are per the dictation of August 04, 2017. HOSPITAL COURSE: The patient was initially quite agitated and paranoid and refusing her medications. Consideration is given to parenteral medications, however, the patient's son-in-law was able to visit and convince her to take oral Xanax along with Nuedexta and the patient became calmer. As she improved over the hospitalization, her mentation improved and she became much more cooperative and returned to her baseline personality. Initial findings included significant hyperlipasemia, Gastrointestinal consultation was obtained from Dr. Manpreet Flores. Ultrasound revealed distended gallbladder without other findings. The common bile duct was 1.2 cm without evidence of obstruction. Abdominal CT was obtained, which again failed to reveal any definite pathology in the biliary tree. Thus, the patient's lipase normalized over the course of approximately a day or two and its rapid resolution suggested the possibility of a passed stone with no evidence of residual. The patient's diet was advanced and she began to eat relatively well again suggesting resolution of the gastrointestinal pathology. Further evaluation as an inpatient was deferred given the patient's overall condition and the likelihood that she would have difficulty with surgical procedure. The patient has also been noted to have an elevated CPK initially 1900 and peaking at 2050. This gradually tapered downward and was confirmed with elevated LDH and aldolase is pending. The patient did not have any obvious trauma or history of trauma. She was somewhat volume depleted on admission and the possibility of hypoperfusion when the patient was lying in one position was consideration. However, the patient is cared for and seems per the family unlikely that the patient was left in that situation for extended period of time. The other possible contributing etiology is involved the use of CBD oil, which the patient has been administering to help with her affect and to keep her calm. Apparently, there is a report of elevated creatine kinase, it is in 6% of the population taking the CBD oil and therefore this could be a possible contributing etiology. This recommended the patient not take this any further. The patient also did have possible urinary tract infection. It was noted that as an outpatient she had urinalysis with 6 wbc's and grew out E. coli, which was sensitive to Bactrim. This was initiated, but the patient apparently was able to take only one dose before she presented to the hospital. She was initially treated empirically with intravenous gentamicin. Infectious Disease consultation obtained from Dr. Ribera, who recommended continuation of the gentamicin. Cultures eventually revealed once again E. coli with a similar sensitivity pattern to be outpatient cultures suggesting this was a partially treated, but not cured E. coli urinary tract infection. The patient was switched to Bactrim once she became stable and was consistently taking oral medications and will complete a course to finish treatment for this. As the patient improved, an attempt was made to mobilize her. The patient's baseline had been walking with supervision using a walker because of her left hemiparesis from prior cerebrovascular accident. After she experienced a fall and fracture in February, she was relatively immobilized, but after a period of healing, outpatient physical therapy was initiated. However, the patient continued to guard her left lower extremity and required one to two person assist with a front-wheel walker in order to ambulate. At this point, the patient due to the debility associated with her acute episode of illness, was only able to sit up at the edge of the bed and remained quite hesitant according to the physical therapist. Situation discussed with the patient's daughter and she agreed that a trial of the course of therapy at a [place] [facility] facility might be helpful to try and improve the patient's mobility. Therefore, discharge planning was requested to locate a bed, presumably at the [facility] [place] in order to allow the patient to improve her mobility. In addition, she can be watched for resolution of her rhabdomyolysis and also to observe with regard to her intake to ensure that it is in fact improved. At the time of discharge, the patient's medications include docusate 100 mg twice a day and latanoprost one drop both eyes at bedtime, Rozerem 8 mg at bedtime, Bactrim DS one tablet twice a day for three additional days, acetaminophen 500 mg q. 8 hours p.r.n., Xanax 0.25 mg b.i.d. p.r.n., aspirin 81 mg daily, Nuedexta one capsule daily, Lexapro 10 mg daily, lisinopril 5 mg daily, Dilantin 100 mg every morning and 200 mg at bedtime. The patient will be followed up at the [facility]. Darrion Duval M.D. DR: JANY JOB#: [id number] CC:
--- NOTE | 2017-08-10 01:45 | Discharge Summary ---
DATE OF ADMISSION: 08/04/2017 DATE OF DISCHARGE: 08/10/2017 DISCHARGE DIAGNOSES: 1. Chemical pancreatitis likely associated with passed gallstone, resolved. 2. Rhabdomyolysis of uncertain etiology, possibly associated with unknown trauma, possibly associated with use of CBD oil. 3. Urinary tract infection secondary to E. coli. 4. Encephalopathy with paranoia associated with the above. 5. 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 6. Simple partial seizures. 7. Irritable bowel syndrome, diarrhea predominant. 8. History of depression and paranoia. 9. Vascular dementia. 10. Labile affect. 11. Status post knee replacement in , right knee. 12. Status post bunionectomy in . 13. Cataract extraction in 2012. 14. Left hip and wrist fractures in 2013. 15. Fall with left tibial intra-articular fracture in February 2017. 16. Gait disorder. 17. Glaucoma. HISTORY OF PRESENT ILLNESS: The patient is an 87-year-old woman, who was noted to have increased agitation and confusion at the [facility]. She was brought to the emergency room and noted to have possible urinary tract infection, which had been partially treated with one dose of outpatient antibiotics as well as evidence of hyperlipasemia and elevated creatine kinase. The patient was admitted for further evaluation and treatment. Details of the history and physical examination are per the dictation of August 04, 2017. HOSPITAL COURSE: The patient was initially quite agitated and paranoid and refusing her medications. Consideration was given to parenteral medications, however, the patient's son-in-law was able to visit and convince her to take oral Xanax along with Nuedexta and the patient became calmer. As she improved over the hospitalization, her mentation improved and she became much more cooperative and returned to her baseline personality. Initial findings included significant hyperlipasemia, Gastrointestinal consultation was obtained from Dr. Manpreet Flores. Ultrasound revealed distended gallbladder without other findings. The common bile duct was 1.2 cm without evidence of obstruction. Abdominal CT was obtained, which again failed to reveal any definite pathology in the biliary tree. The patient's lipase normalized over the course of approximately a day and its rapid resolution suggested the possibility of a passed stone with no evidence of residual. The patient's diet was advanced and she began to eat relatively well again suggesting resolution of the gastrointestinal pathology. Further evaluation as an inpatient was deferred given the patient's overall condition and the likelihood that she would have difficulty with a surgical procedure. The patient has also been noted to have an elevated CPK initially 190 and peaking at 2050. This gradually tapered downward and was confirmed with elevated LDH and pending aldolase. The patient did not have any obvious trauma or history of trauma. She was somewhat volume depleted on admission and the possibility of hypoperfusion when the patient was lying in one position was consideration. However, the patient is cared for at an [facility] and it seems per the family unlikely that the patient was left in that situation for extended period of time. The other possible contributing etiology involved the use of CBD oil, which the patient's daughter has been administering to help with her affect and to keep her calm. Apparently, there is a report of elevated creatine kinase in 6% of the population taking CBD oil and therefore this could be a possible contributing etiology. It was recommended the patient not take the CBD any further. The patient also did have a possible urinary tract infection. It was noted that as an outpatient she had urinalysis with 6 wbc's and grew out E. coli, which was sensitive to Bactrim. This antibiotic was initiated, but the patient apparently was able to take only one dose before she presented to the hospital. She was initially treated empirically with intravenous gentamicin. Infectious Disease consultation was obtained from Dr. Ribera, who recommended continuation of the gentamicin. Cultures eventually revealed once again E. coli with a similar sensitivity pattern to be outpatient cultures suggesting this was a partially treated, but not cured, E. coli urinary tract infection. The patient was switched to Bactrim once she became stable and was consistently taking oral medications and will complete a course to finish treatment for this. As the patient improved, an attempt was made to mobilize her. The patient's baseline had been walking with supervision using a walker because of her left hemiparesis from prior cerebrovascular accident. After she experienced a fall and fracture in February, she was relatively immobilized, but after a period of healing, outpatient physical therapy was initiated. However, the patient continued to guard her left lower extremity and required one to two person assist with a front-wheel walker in order to ambulate. At this point, the patient due to the debility associated with her acute episode of illness, was only able to sit up at the edge of the bed and remained quite hesitant according to the physical therapist. The situation was discussed with the patient's daughter and she agreed that a trial of physical therapy at a residential facility might be helpful to try and improve the patient's mobility. Therefore, discharge planning was requested to locate a bed, presumably at the [facility] [place] in order to allow the patient to improve her mobility. In addition, she can be watched for resolution of her rhabdomyolysis and also to observe with regard to her intake to ensure that it is in fact improved. At the time of discharge, the patient's medications include docusate 100 mg twice a day and latanoprost one drop both eyes at bedtime, Rozerem 8 mg at bedtime, Bactrim DS one tablet twice a day for three additional days, acetaminophen 500 mg q. 8 hours p.r.n., Xanax 0.25 mg b.i.d. p.r.n., aspirin 81 mg daily, Nuedexta one capsule daily, Lexapro 10 mg daily, lisinopril 5 mg daily, Dilantin 100 mg every morning and 200 mg at bedtime. The patient will be followed up at the residential facility. Darrion Duval M.D. DR: JANY JOB#: [id number] CC: PAO
[2017-08-10 04:00] VITALS: BP 139/78
[2017-08-10 08:00] VITALS: BP 152/91
--- NOTE | 2017-08-10 08:25 | General Progress Note ---
Assessment/Plan Assessment/Plan Assessment - Resolved hyperlipasemia - transient dilation of biliary tree - mildly elevated AST - presentation c/w passed stone - Rhabdo Recommendations - po diet - follow labs and exam - conservative management, given age/dementia - d/c planning - Will sign off. Thank you for this referral. Subjective Allergies: Coded Allergies: PENICILLINS (Verified Allergy, Unknown, 06/05/15) Subjective confused no new symptoms no abd pain Objective Last 24 Hour Vital Signs Date Time Temp Pulse Resp B/P (MAP) Pulse Ox O2 Delivery O2 Flow Rate FiO2 08/10/17 08:00 97.6 80 16 152/91 97 97.6 08/10/17 04:00 97.3 57 20 139/78 98 97.3 08/10/17 00:00 98.2 60 20 135/81 98 98.2 08/09/17 20:00 98.0 55 20 145/71 97 98.0 08/09/17 15:45 97.9 62 20 130/67 96 Room Air 97.9 08/09/17 12:00 97.5 62 20 133/56 97 97.5 08/09/17 08:42 150/70 Intake and Output 08/09/17 08/10/17 19:00 07:00 Intake Total 500 ml 1100 ml Balance 500 ml 1100 ml Intake Oral 400 ml 0 ml IV Total 100 ml 1100 ml # Voids 3 3 Height (Feet): 5 Height (Inches): 7.00 Weight (Pounds): 136 Manpreet Flores MD August 10, 2017 08:25
[2017-08-10] MEDS: Bactrim-DS 1 tab ORAL SCH ×2 (10:44→17:51)
[2017-08-10] MEDS: Aspirin EC 81mg tab ORAL SCH (10:44)
[2017-08-10] MEDS: Docusate 100mg cap ORAL SCH ×2 (10:44→17:52)
[2017-08-10] MEDS: Nuedexta Capsule 20/10mg ORAL SCH ×2 (10:44→20:49)
[2017-08-10] MEDS: Lisinopril 10mg tab ORAL SCH (10:44)
[2017-08-10] MEDS: Phenytoin 100mg cap ORAL SCH ×2 (10:45→20:49)
[2017-08-10 12:00] VITALS: BP 157/74
--- NOTE | 2017-08-10 12:27 | Infectious Diseases Prog Note ---
Assessment/Plan Assessment/Plan A) 1) e.coli uti, complicated uti, encephalopathy, ? sepsis - clinically stable , more alert 2) cva, depression, ibs, glaucoma, cataracts, dementia, abnormal gate, elevated lipase/amylase, rhabdo, weakness, paranoia, sz, pmh noted 3) allergies - pcn 4) sh-negative, fh-nc, mar noted, notes and records noted 5) d/w RN P) 1) bactrim - day # 6/10 antibiotics 2) watch cr/wbc on bactrim 3) clinically stable 4) f/u on labs 5) continue tx per Dr. Duval 6) vre colonization Subjective Constitutional: Denies: fever HEENT: Denies: congestion Respiratory: Denies: shortness of breath Breasts: Denies: discharge Cardiovascular: Denies: chest pain Gastrointestinal/Abdominal: Denies: nausea, vomiting, diarrhea Genitourinary: Reports: other - no lara Neurologic: Denies: headache Psychiatric: Denies: depression Skin: Denies: rash Hematologic: Denies: bleeding Musculoskeletal: Denies: pain Allergies: Coded Allergies: PENICILLINS (Verified Allergy, Unknown, 06/05/15) Objective Vital Signs Last 24 Hour Vital Signs Date Time Temp Pulse Resp B/P (MAP) Pulse Ox O2 Delivery O2 Flow Rate FiO2 08/10/17 10:44 152/91 08/10/17 08:00 97.6 80 16 152/91 97 97.6 08/10/17 04:00 97.3 57 20 139/78 98 97.3 08/10/17 00:00 98.2 60 20 135/81 98 98.2 08/09/17 20:00 98.0 55 20 145/71 97 98.0 08/09/17 15:45 97.9 62 20 130/67 96 Room Air 97.9 Height (Feet): 5 Height (Inches): 7.00 Weight (Pounds): 136 General Appearance: no acute distress HEENT: normocephalic, atraumatic, anicteric, mucous membranes moist Respiratory/Chest: lungs clear, normal breath sounds, no respiratory distress Cardiovascular: normal rate, regular rhythm, no gallop/murmur, no JVD Abdomen: normal bowel sounds, soft, non tender, no organomegaly, non distended Genitourinary: other - no lara Extremities: no cyanosis Skin: no rash 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 Limited exam, as described Trace ascites fluid No other definite acute abnormality demonstrated Colonic diverticulosis. No evidence of diverticulitis Chest x-ray - nad Microbiology Date/Time Source Procedure Growth Status 08/04/17 11:00 Blood Blood Culture - Final NO GROWTH AFTER 5 DAYS Complete 08/04/17 11:03 Nasal Nares MRSA Culture - Final NO METHICILLIN RESISTANT STAPH AUREUS... Complete 08/04/17 11:00 Urine,Clean Catch Urine Culture - Final Escherichia Coli Complete 08/04/17 11:03 Rectum VRE Culture - Final Enterococcus Faecalis - Vre Complete Labs Test 08/08/17 06:00 08/09/17 07:00 08/09/17 07:05 White Blood Count 7.1 K/UL (4.8-10.8) 4.0 K/UL (4.8-10.8) Red Blood Count 4.61 M/UL (4.20-5.40) 3.97 M/UL (4.20-5.40) Hemoglobin 14.5 G/DL (12.0-16.0) 12.6 G/DL (12.0-16.0) Hematocrit 42.2 % (37.0-47.0) 36.8 % (37.0-47.0) Mean Corpuscular Volume 91 FL (80-99) 93 FL (80-99) Mean Corpuscular Hemoglobin 31.5 PG (27.0-31.0) 31.6 PG (27.0-31.0) Mean Corpuscular Hemoglobin Concent 34.5 G/DL (32.0-36.0) 34.1 G/DL (32.0-36.0) Red Cell Distribution Width 11.4 % (11.6-14.8) 11.7 % (11.6-14.8) Platelet Count 148 K/UL (150-450) 116 K/UL (150-450) Mean Platelet Volume 9.7 FL (6.5-10.1) 9.6 FL (6.5-10.1) Neutrophils (%) (Auto) 73.8 % (45.0-75.0) 60.3 % (45.0-75.0) Lymphocytes (%) (Auto) 18.7 % (20.0-45.0) 30.1 % (20.0-45.0) Monocytes (%) (Auto) 6.2 % (1.0-10.0) 6.9 % (1.0-10.0) Eosinophils (%) (Auto) 0.3 % (0.0-3.0) 1.5 % (0.0-3.0) Basophils (%) (Auto) 0.9 % (0.0-2.0) 1.3 % (0.0-2.0) Sodium Level 141 MMOL/L (136-145) 141 MMOL/L (136-145) Potassium Level 3.5 MMOL/L (3.5-5.1) 3.4 MMOL/L (3.5-5.1) Chloride Level 104 MMOL/L (98-107) 108 MMOL/L (98-107) Carbon Dioxide Level 25 MMOL/L (21-32) 28 MMOL/L (21-32) Anion Gap 12 mmol/L (5-15) 5 mmol/L (5-15) Blood Urea Nitrogen 7 mg/dL (7-18) 8 mg/dL (7-18) Creatinine 0.9 MG/DL (0.55-1.30) 0.9 MG/DL (0.55-1.30) Estimat Glomerular Filtration Rate mL/min (>60) mL/min (>60) Glucose Level 106 MG/DL (74-106) 96 MG/DL (74-106) Calcium Level 8.9 MG/DL (8.5-10.1) 7.9 MG/DL (8.5-10.1) Total Bilirubin 0.8 MG/DL (0.2-1.0) 0.4 MG/DL (0.2-1.0) Direct Bilirubin 0.2 MG/DL (0.0-0.3) Aspartate Amino Transf (AST/SGOT) 78 U/L (15-37) 53 U/L (15-37) Alanine Aminotransferase (ALT/SGPT) 42 U/L (12-78) 33 U/L (12-78) Alkaline Phosphatase 107 U/L (46-116) 84 U/L (46-116) Total Creatine Kinase 1010 U/L (26-308) 868 U/L (26-308) Total Protein 7.5 G/DL (6.4-8.2) 6.3 G/DL (6.4-8.2) Albumin 3.9 G/DL (3.4-5.0) 3.0 G/DL (3.4-5.0) Amylase Level 73 U/L (25-115) Lipase 201 U/L (73-393) Erythrocyte Sedimentation Rate 26 MM/HR (0-30) Lactate Dehydrogenase 255 U/L (81-234) C-Reactive Protein, Quantitative 2.0 mg/dL (0.00-0.90) Globulin 3.3 g/dL Albumin/Globulin Ratio 0.9 (1.0-2.7) Current Medications Medications (Trade) Dose Ordered Sig/Martha Route PRN Reason Start Time Stop Time Status Last Admin Dose Admin Acetaminophen (Tylenol) 500 mg Q8H PRN ORAL Prn Headache/Temp > 101 08/04/17 18:15 09/03/17 18:14 08/09/17 08:42 Alprazolam (Xanax) 0.25 mg Q6H PRN ORAL For Anxiety 08/04/17 20:00 08/11/17 19:59 08/09/17 08:42 Aspirin (Ecotrin) 81 mg DAILY ORAL 08/05/17 09:00 09/04/17 08:59 08/10/17 10:44 Bisacodyl (Dulcolax) 10 mg DAILYPRN PRN RECTAL Constipation 08/07/17 11:00 09/06/17 10:59 08/08/17 08:48 Dextromethorphan/ Quinidine (Nuedexta Capsule) 1 cap DAILY ORAL 08/05/17 09:00 09/04/17 08:59 08/10/17 10:44 Dextromethorphan/ Quinidine (Nuedexta Capsule) 1 cap Q12H PRN ORAL increased lability 08/04/17 19:45 09/03/17 19:44 08/07/17 17:18 Docusate Sodium (Colace) 100 mg TWICE A DAY ORAL 08/07/17 18:00 09/06/17 17:59 08/10/17 10:44 Escitalopram Oxalate (Lexapro) 10 mg DAILY ORAL 08/05/17 09:00 09/04/17 08:59 08/10/17 10:44 Latanoprost (Xalatan) 1 drop BEDTIME BOTH EYES 08/04/17 21:00 09/03/17 20:59 08/09/17 21:13 Lisinopril (Zestril) 5 mg DAILY ORAL 08/05/17 09:00 09/04/17 08:59 08/10/17 10:44 Phenytoin (Dilantin) 100 mg DAILY ORAL 08/05/17 09:00 09/04/17 08:59 08/10/17 10:45 Phenytoin (Dilantin) 200 mg BEDTIME ORAL 08/04/17 21:00 09/03/17 20:59 08/09/17 21:12 Ramelteon (Rozerem) 8 mg QHS ORAL 08/04/17 21:00 09/03/17 20:59 08/09/17 21:12 Sodium Chloride 1,000 ml @ 100 mls/hr Q10H IV 08/04/17 16:15 09/03/17 16:14 08/10/17 02:17 Trimethoprim/ Sulfamethoxazole (Bactrim-DS) 1 tab TWICE A DAY ORAL 08/08/17 18:00 08/15/17 17:59 08/10/17 10:44 Eun Ribera MD August 10, 2017 12:27
[2017-08-10 16:00] VITALS: BP 164/84
[2017-08-10] MEDS: ALPRAZolam 0.25mg tab ORAL PRN (17:51)
[2017-08-10] MEDS: Acetaminophen 500mg (ES) tab ORAL PRN (17:52)
--- NOTE | 2017-08-10 19:09 | Geriatric Progress Note ---
Assessment/Plan Problems: (1) Elevated lipase (2) Elevated amylase (3) Toxic metabolic encephalopathy (4) Vascular dementia (5) Gait instability (6) Rhabdomyolysis (7) UTI (urinary tract infection) Assessment/Plan UTI continues on Bactrim po. Encephalopathy cleared, behavior with mild episodes of agitation, lability. Will increase Nuedexta to bid. May need to consider low dose Seroquel if further issues. Attempt to mobilize with P.T. Awaiting decision re SNF bed. Otherwise continue present regimen. Discussed with: patient, hospital staff Subjective Interval Events Patient alert, denies c/o. Apparently refused meals in am, but ate well this p.m. Episodic lability noted. No b.m. x 3d. Constitutional: Reports: pain Respiratory: Reports: shortness of breath Cardiovascular: Reports: chest pain Gastrointestinal/Abdominal: Reports: abdominal pain Genitourinary: Reports: dysuria Subjective Denies all sxs, but responses unreliable. Geriatric Geriatric Last 24 Hour Vital Signs Date Time Temp Pulse Resp B/P (MAP) Pulse Ox O2 Delivery O2 Flow Rate FiO2 08/10/17 16:00 98.1 66 16 164/84 96 98.1 08/10/17 12:00 97.3 57 16 157/74 98 97.3 08/10/17 10:44 152/91 08/10/17 08:00 97.6 80 16 152/91 97 97.6 08/10/17 04:00 97.3 57 20 139/78 98 97.3 08/10/17 00:00 98.2 60 20 135/81 98 98.2 08/09/17 20:00 98.0 55 20 145/71 97 98.0 Intake and Output 08/09/17 08/10/17 19:00 07:00 Intake Total 500 ml 1100 ml Balance 500 ml 1100 ml Intake Oral 400 ml 0 ml IV Total 100 ml 1100 ml # Voids 3 3 Current Medications Medications (Trade) Dose Ordered Sig/Martha Route PRN Reason Start Time Stop Time Status Last Admin Dose Admin Acetaminophen (Tylenol) 500 mg Q8H PRN ORAL Prn Headache/Temp > 101 08/04/17 18:15 09/03/17 18:14 08/10/17 17:52 Alprazolam (Xanax) 0.25 mg Q6H PRN ORAL For Anxiety 08/04/17 20:00 08/11/17 19:59 08/10/17 17:51 Aspirin (Ecotrin) 81 mg DAILY ORAL 08/05/17 09:00 09/04/17 08:59 08/10/17 10:44 Bisacodyl (Dulcolax) 10 mg DAILYPRN PRN RECTAL Constipation 08/07/17 11:00 09/06/17 10:59 08/08/17 08:48 Dextromethorphan/ Quinidine (Nuedexta Capsule) 1 cap DAILY ORAL 08/05/17 09:00 09/04/17 08:59 08/10/17 10:44 Dextromethorphan/ Quinidine (Nuedexta Capsule) 1 cap Q12H PRN ORAL increased lability 08/04/17 19:45 09/03/17 19:44 08/07/17 17:18 Docusate Sodium (Colace) 100 mg TWICE A DAY ORAL 08/07/17 18:00 09/06/17 17:59 08/10/17 17:52 Escitalopram Oxalate (Lexapro) 10 mg DAILY ORAL 08/05/17 09:00 09/04/17 08:59 08/10/17 10:44 Latanoprost (Xalatan) 1 drop BEDTIME BOTH EYES 08/04/17 21:00 09/03/17 20:59 08/09/17 21:13 Lisinopril (Zestril) 5 mg DAILY ORAL 08/05/17 09:00 09/04/17 08:59 08/10/17 10:44 Phenytoin (Dilantin) 100 mg DAILY ORAL 08/05/17 09:00 09/04/17 08:59 08/10/17 10:45 Phenytoin (Dilantin) 200 mg BEDTIME ORAL 08/04/17 21:00 09/03/17 20:59 08/09/17 21:12 Ramelteon (Rozerem) 8 mg QHS ORAL 08/04/17 21:00 09/03/17 20:59 08/09/17 21:12 Sodium Chloride 1,000 ml @ 100 mls/hr Q10H IV 08/04/17 16:15 09/03/17 16:14 08/10/17 18:40 Trimethoprim/ Sulfamethoxazole (Bactrim-DS) 1 tab TWICE A DAY ORAL 08/08/17 18:00 08/15/17 17:59 08/10/17 17:51 Height (Feet): 5 Height (Inches): 7.00 Weight (Pounds): 136 General Appearance: no apparent distress, alert Head: normocephalic, atraumatic Eyes: bilateral anicteric ENT: normal voice Neck: full range of motion, no mass Respiratory: lungs clear Cardiovascular: regular rate, rhythm Gastrointestinal: normal bowel sounds, non tender, soft, no mass, no organomegaly, non-distended Edema: no edema noted Generalized Neurologic: no new focality ESTEFANY LOZANO August 10, 2017 19:09
[2017-08-10 20:00] VITALS: BP 149/80
[2017-08-10] MEDS: Ramelteon 8mg tab (Approved for Delirium use only) ORAL SCH (20:49)
[2017-08-10] MEDS: Latanoprost 0.005% Opth 2.5ml Soln BOTH EYES SCH (20:51)
[2017-08-10] MEDS ORDERED: Miralax 17gm pkt ORAL SCH (21:00)
[2017-08-11] VITALS: BP 167/82
[2017-08-11 04:00] VITALS: BP 160/77
[2017-08-11 06:00] VITALS: BP 153/78
[2017-08-11 08:00] VITALS: BP 149/78
[2017-08-11] MEDS: Phenytoin 100mg cap ORAL SCH (09:34)
[2017-08-11] MEDS: Bactrim-DS 1 tab ORAL SCH (09:34)
[2017-08-11] MEDS: Docusate 100mg cap ORAL SCH (09:34)
[2017-08-11] MEDS: Aspirin EC 81mg tab ORAL SCH (09:35)
[2017-08-11] MEDS: Lisinopril 10mg tab ORAL SCH (09:35)
[2017-08-11] MEDS: Nuedexta Capsule 20/10mg ORAL SCH (09:35)
[2017-08-11 12:00] VITALS: BP 153/87
== END 2017-08-11 15:06 | DRG 438 ==
LOC: EDBD 10:31 → EMR 11:05 → 4E 11:33 → EDBEDREQ 12:53 → 4E 14:34
DX: K85.10 Biliary acute pancreatitis without necrosis or infection (principal); G92 Toxic encephalopathy; N39.0 Urinary tract infection, site not specified; M62.82 Rhabdomyolysis; I69.354 Hemiplegia and hemiparesis following cerebral infarction affecting left non-dominant side; G40.109 Localization-related (focal) (partial) symptomatic epilepsy and epileptic syndromes with simple partial seizures, not intractable, without status epilepticus; B96.20 Unspecified Escherichia coli [E. coli] as the cause of diseases classified elsewhere; F22 Delusional disorders; K58.0 Irritable bowel syndrome with diarrhea; F32.9 Major depressive disorder, single episode, unspecified; F01.50 Vascular dementia, unspecified severity, without behavioral disturbance, psychotic disturbance, mood disturbance, and anxiety; Z96.651 Presence of right artificial knee joint; Z91.81 History of falling; R26.9 Unspecified abnormalities of gait and mobility; H40.9 Unspecified glaucoma; R45.1 Restlessness and agitation; Z88.0 Allergy status to penicillin; I10 Essential (primary) hypertension; Z66 Do not resuscitate; M19.90 Unspecified osteoarthritis, unspecified site; Z79.899 Other long term (current) drug therapy
CPT/HCPCS: 36415; 71045; 74177; 76700; 80048; 80053; 80076; 80170; 81003; 82085; 82150; 82550; 82553; 82962; 83605; 83615; 83690; 83735; 85007; 85025; 85651; 86140; 87040; 87081; 87086; 87181; 93005; 99285; J8499

== ENCOUNTER 2018-12-20 08:40 | Outpatient (CLI) | payer MEDICARE ==
[~2018-12-20 08:40] MED LIST changes: +ASPIR 8181 MG ORAL; +BACTRIM-DS1 EA ORAL; +COLACE100 MG ORAL; +LEXAPRO10 MG ORAL; +LISINOPRIL5 MG ORAL; +NUEDEXTA 20-101 EAC1 PO; +PHENYTOIN SODI100 MG ORAL; +ROZEREM8 MG ORAL; +UNOBMED; +XALATAN2.5 ML BOTH EYES; +XANAX0.25 MG ORAL
--- NOTE | 2018-12-21 13:08 | Diagnostic Imaging Report ---
APPROVED REPORT CPT Code: 63067 Vascular Symptoms CVA/TIA: Doppler Spectral Velocity Analysis RightLeft RIGHT SIDE: CCA /ECA- Imaging reveals no significant plaque in the common carotid and the external carotid arteries . ICA - Imaging reveals irregular plaque in the internal carotid artery. The Doppler signal indicates the degree of stenosis is minimal (20%) in the internal carotid artery. LEFT SIDE: CCA /ECA- Imaging reveals no significant plaque in the common carotid and the external carotid arteries . ICA - Imaging reveals irregular plaque in the internal carotid artery. The Doppler signal indicates the degree of stenosis is mild (30%) in the internal carotid artery. VERTEBRAL/SUBCLAVIAN- The vertebral and subclavian arteries are within normal limits, bilaterally. Note:Tortuous left internal carotid artery.
== END 2018-12-20 10:40 | disposition home or self-care (01) ==
LOC: VAS 08:40
DX: I65.29 Occlusion and stenosis of unspecified carotid artery (principal)
CPT/HCPCS: 93880